=== PATIENT | female | born 1955 | race Caucasian/White ===

== ENCOUNTER 2024-02-15 08:42 | Outpatient (AMB) | payer MEDICARE, SELFPAY ==
--- NOTE | 2024-02-15 08:56 | A.OFFPC_ITS ---
Vital Signs 02/15/24 09:16 Height 5 ft 6 in Weight 165 lb 8 oz BMI 26.7 BP 138/80 Blood Pressure Location Lt brachial Position Sitting Respiration 16 Pulse 62 Pulse Source Pulse Oximeter Temp 98.2 F Temp Source Oral Pulse Oximetry (%) 98 Oxygen Delivery Method Room Air Intake Visit Reasons: est care Intake Note: New patient visit Ethnographer Required: No Allergies Penicillins Allergy (Unknown, Verified 02/15/24 09:41) Rash Sulfa (Sulfonamide Antibiotics) Allergy (Unknown, Verified 02/15/24 09:41) unknown nitrofurantoin [From Macrobid] Adverse Reaction (Unknown, Verified 02/15/24 09:41) cough prednisone Adverse Reaction (Verified 02/15/24 09:41) tachycardia Medication List - Last Reconciled 02/15/24 by Domitila Roberto PA-C cromolyn mg PO cromolyn (Nasalcrom) 1 spray intranasal TID famotidine 20 mg PO DAILY fexofenadine 180 mg PO DAILY latanoprost 0.005% drps ophthalmic (eye) levalbuterol tartrate 45 mcg/actuation inhalation levothyroxine 88 mcg PO DAILY metoprolol succinate ER (Toprol XL) 75 mg PO omeprazole 20 mg PO BID Tobacco use date assessed: 02/15/24 Fall risk assessment: No Falls in past year Last assessed Fall Risk: 02/15/24 Dental Screening Dental Screen Date: 02/15/24 Did you have a dental visit in the last 12 months?: Yes Did you have a dental problem in the last 6 months where you did not have access to dental care?: No Was dental information given to patient?: Patient has dentist HPI est care HPI Details Patient is a 68-year-old female with a significant past medical history of GERD, hypertension, hypothyroidism, prediabetes, vitamin-D deficiency, diverticulosis, allergic rhinitis, low serum IgA, palpitations, thyroid nodules [facility] is transferring from [facility]. I last saw her in September. CV: Blood pressure today in the office is. She is currently on metoprolol 75 mg daily. She does follow with cardiology for her history of palpitations and hypertension. Endo: She is on 88 mcg of levothyroxine. Her last TSH was 1.85. Had a thyroid ultrasound 07/10/23 which was WNL. No nodules. Last A1c was 5.7. She has been a prediabetic but has not crossed into diabetes. No polyuria or polydipsia. Tries to be careful with her diet. GI: Overall stable and following with GI at [facility] (was with Dr. Barragan) for her chronic, ongoing abdominal discomfort and GERD. Omeprazole and famotidine are helpful. Uses hydrocortisone suppositories prn. She is seeing GI next week. Allergy: Follows with Allergy and immunology in [place]. Had PFTs which were normal this past year. She did fail a penicillin challenge. She is following up with them for regards if possible long habetty WATERS. They thought that she may benefit from cromolyn but has not started this. She states she is stressed about how to take this. She is compliant with Sensimist, Danna and going to be switching nasal sprays due to increased eye pressure. 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 Ackerman for her increased urinary frequency but that had resolved when she started to pay attention to her diet and urination. She is going to start the estradiol cream soon. 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 Mammogram: Up-to-date per patient completed 10/14 does them at [place]. 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 GERD (gastroesophageal reflux disease) Diverticulosis Hemorrhoids Palpitations Thyroid nodule Seasonal allergies Allergic rhinitis Hypothyroidism (acquired) Prediabetes Hypertension Family History (Updated 02/15/24 @ 08:40 by Domitila Roberto PA-C) Mother Colon cancer Father Aneurysm, aortic Heart disease Paternal Grandfather Colon cancer Brother Depression Social History Housing: House Patient Tobacco Use Status: Former Tobacco user Years Smoked: socially, quit 1989 e-Cigarette/Vaping Use: Never Used Second Hand Smoke Exposure: No service: Yes Current occupational status: retired Cognitive needs: No Hearing needs: No Vision needs: Yes (Reading glasses ) Questionnaire PHQ-9 Over the last 2 weeks, how often have you been bothered by any of the following problems? 1. Little interest or pleasure in doing things: not at all 2. Feeling down, depressed, or hopeless: not at all 3. Trouble falling or staying asleep, or sleeping too much: not at all 4. Feeling tired or having little energy: not at all 5. Poor appetite or overeating: not at all 6. Feeling bad about yourself - or that you are a failure or have let yourself or your family down: not at all 7. Trouble concentrating on things, such as reading the newspaper or watching television: not at all 8. Moving or speaking so slowly that other people could have noticed. Or the opposite - being so fidgety or restless that you have been moving around a lot more than usual: not at all 9. Thoughts that you would be better off or of hurting yourself in some way: not at all Total score: 0 Depression Screening Interpretation: Negative Depression Screening Done: Yes 05601 - PHQ-9 Billing: Yes Source: Developed by Drs. Bebeto Conde, Marie Villalta, Randy Ramirez and colleagues, with an educational sneha from [employer]. Thrive Questionnaire Date Thrive assessed: 02/15/24 I am a: Patient What is your living situation today?: I have a steady place to live Within the past 12 months, did the food you bought not last and you didn't have the money to get more?: Never true Within the past 12 months, did you worry whether your food would run out before you got money to buy more?: Never true Do you have trouble paying for medicines?: No Do you have trouble getting transportation to medical appointments?: No Do you have trouble paying your heating and electricity bill?: No Do you have trouble taking care of your child, family member or friend?: No Do you have trouble with day-to-day activities such as bathing, preparing meals, shopping, managing finances, etc.?: No Are you currently unemployed and looking for a job?: No Are you interested in more education?: No Please select the resources that you would like help with: None Currently or been in a relationship where the following occur: no concerns reported THRIVE Score: 0 AUDIT C Alcohol Use Questionnaire (AUDIT-C) 1. How often do you have a drink containing alcohol?: Monthly or less 2. How many drinks containing alcohol do you have on a typical day when you are drinking?: 1 or 2 3. How often do you have six or more drinks on one occasion?: Never Total Score: 1 Score Reviewed/Action Taken: Yes MALLIKA-7 AMB Questionnaire MALLIKA-7 Date MALLIKA - 7 assessed: 02/15/24 Feeling nervous, anxious, or on edge: 0 = Not at all Not being able to stop or control worryin = Not at all Worrying too much about different things: 0 = Not at all Trouble relaxin = Not at all Being so restless that it is hard to sit still: 0 = Not at all Becoming easily annoyed or irritable: 0 = Not at all Feeling afraid as if something awful might happen: 0 = Not at all Total MALLIKA-7 score (0-4 normal; 5-9 mild; 10-14 moderate; 15-21 severe): 0 Source: Developed by Drs. Bebeto Conde, Marie Villalta, Randy Ramirez and colleagues, with an educational sneha from [employer]. MALLIKA-7 Assessment Billing MALLIKA-7 Assessment Tool: MALLIKA-7 Assessment 58327 Review of Systems Const Denies fatigue, Denies fever(s), Denies night sweats and Denies weight loss Eyes Denies blurry vision ENT Denies facial pain, Denies nasal congestion and Denies nasal discharge Card Denies chest pain, Denies lightheadedness, Denies palpitations and Denies dyspnea Resp Denies cough, Denies dyspnea and Denies wheezing GI Denies abdominal pain, Denies hematochezia, Denies constipation, Denies diarrhea, Denies nausea and Denies vomiting Endo Denies fatigue and Denies palpitations Aller/Immun Denies wheezing Physical exam (Primary Care) Tobacco/Smoking Status: Tobacco use Status Tobacco use date assessed 02/15/24 02/15/24 09:12 Patient Tobacco Use Status Former Tobacco user 02/15/24 09:12 e-Cigarette/Vaping Use Never Used 02/15/24 09:12 Depression Screening Interpretation: Negative Currently or been in a relationship where the following occur: no concerns reported Const Orientation/consciousness: patient oriented x3 HENMT Ears: hearing grossly normal bilaterally Neck Thyroid: Thyroid normal Lymphatic: no lymphadenopathy noted Resp Auscultation: clear to auscultation bilaterally Cardio Rate: regular rate Rhythm: regular rhythm Heart sounds: S1 normal heart sound present and S2 normal heart sound present GI Inspection: Yes normal to inspection Palpation (GI): Soft to palpation and Other GI palpation findings present (nontender, no cva tenderness) Auscultation: normoactive bowel sounds Rectal Exam - Female: deferred Skin General skin exam: no rashes or lesions noted Neuro General: patient oriented x3, gait normal and no focal motor deficits Assessment and Plan Assessment & Plan (1) Hypertension: Code(s): I10 - Essential (primary) hypertension Qualifiers: Hypertension type: primary hypertension Qualified Code(s): I10 - Essential (primary) hypertension Plan: continue metoprolol 75 mg daily. will need pa for future refill. does not tolerate other brands/dosing. (2) Prediabetes: Code(s): R73.03 - Prediabetes Plan: a1c ordered (3) Hypothyroidism (acquired): Code(s): E03.9 - Hypothyroidism, unspecified Plan: last tsh was wnl continue levothyroxine (4) GERD (gastroesophageal reflux disease): Code(s): K21.9 - Gastro-esophageal reflux disease without esophagitis Qualifiers: Esophagitis presence: without esophagitis Qualified Code(s): K21.9 - Gastro-esophageal reflux disease without esophagitis Plan: well controlled with omeprazole and famotidine. following with GI Plan advised to book cpe labs ordered bone density ordered as she is due this summer pt will follow up sooner prn pt understands and agrees with the plan Orders: Orders Complete Blood Count Auto Diff Today E03.9 - Hypothyroidism, unspecified, I10 - Essential (primary) hypertension, K21.9 - Gastro-esophageal reflux disease without esophagitis, R73.03 - Prediabetes Lipid Panel Today E03.9 - Hypothyroidism, unspecified, I10 - Essential (primary) hypertension, K21.9 - Gastro-esophageal reflux disease without esophagitis, R73.03 - Prediabetes Vitamin D 25-OH Total Today E03.9 - Hypothyroidism, unspecified, E55.9 - Vitamin D deficiency, unspecified, I10 - Essential (primary) hypertension, K21.9 - Gastro-esophageal reflux disease without esophagitis, R73.03 - Prediabetes Comprehensive [place]. Panel Fast Today E03.9 - Hypothyroidism, unspecified, I10 - Essential (primary) hypertension, K21.9 - Gastro-esophageal reflux disease wit hout esophagitis, R73.03 - Prediabetes Hemoglobin A1c Today E03.9 - Hypothyroidism, unspecified, I10 - Essential (primary) hypertension, K21.9 - Gastro-esophageal reflux disease without esophagitis, R73.03 - Prediabetes TSH reflex Free T4 Today E03.9 - Hypothyroidism, unspecified, I10 - Essential (primary) hypertension, K21.9 - Gastro-esophageal reflux disease without esophagitis, R73.03 - Prediabetes Vitamin B12 and Folate Today E03.9 - Hypothyroidism, unspecified, I10 - Essential (primary) hypertension, K21.9 - Gastro-esophageal reflux disease without esophagitis, R73.03 - Prediabetes XR DEXA axial skeleton Today E03.9 - Hypothyroidism, unspecified, I10 - Essential (primary) hypertension, K21.9 - Gastro-esophageal reflux disease without esophagitis, R73.03 - Prediabetes, Z78.0 - Asymptomatic menopausal state Coding Level of Care Code Est Pt Level 4 (21823) Complex EM visit Add On G2211 Diagnoses Primary hypertension I10 Hypertension type: primary hypertension Prediabetes R73.03 Hypothyroidism (acquired) E03.9 Gastroesophageal reflux disease without esophagitis K21.9 Esophagitis presence: without esophagitis Additional Codes MALLIKA-7 Assessment Billing - MALLIKA-7 Assessment Tool: MALLIKA-7 Assessment [id number] ([id number])
[2024-02-15 09:16] VITALS: BP 138/80; PULSE 62; RESP 16; TEMP 36.8; O2SAT 98; BMI 26.7
== END 2024-02-15 10:04 | disposition home or self-care (01) ==
PROVIDERS: Visit Provider Physician Assistant
DX: I10 Essential (primary) hypertension (principal); R73.03 Prediabetes; E03.9 Hypothyroidism, unspecified; K21.9 Gastro-esophageal reflux disease without esophagitis
CPT/HCPCS: 99214; G2211

== ENCOUNTER 2024-05-13 07:30 | Outpatient (REF) | payer MEDICARE, SELFPAY ==
[2024-05-13 11:10] LABS: MANUAL DIFF FLAG NO
[2024-05-13 11:19] LABS: Basophils Absolute Auto 0.1 X10*3/uL (0.0-0.2); Basophils Percent Auto 0.9 % (0-2); Eosinophils Absolute Auto 0.1 X10*3/uL (0.0-0.4); Eosinophils Percent Auto 1.7 % (0-4); Hematocrit 44.9 % (37.0-47.0); Imm Gran Abs Auto 0.01 X10*3/uL (0.00-0.03); Imm Gran Pct Auto 0.2 % (0.0-0.4); Lymphocytes Absolute Auto 2.3 X10*3/uL (1.2-4.9); Lymphocytes Percent Auto 35.7 % (20-40); Mean Corpuscular HGB Conc 33.4 g/dl (31.0-35.0); Mean Corpuscular Hemoglobin 31.6 pg (27.0-33.0); Mean Corpuscular Volume 94.5 fL (80.0-98.0); Mean Platelet Volume 11.4 fL (9.4-12.3); Monocytes Absolute Auto 0.6 X10*3/uL (0.1-1.2); Monocytes Percent Auto 8.6 % (2-11); Neutrophils Absolute Auto 3.4 x10*3/uL (2.0-8.3); Neutrophils Percent Auto 52.9 % (45-73); Platelet Count 241 X10*3/uL (160-400); Red Blood Count 4.75 X10*6/uL (4.20-5.50); Red Cell Distribution Width 11.8 % (11.0-16.0); White Blood Count 6.4 X10*3/uL (4.8-10.8)
[2024-05-13 11:30] LABS: Estimated Average Glucose 111 mg/dL; Hemoglobin A1c % 5.5 % (<6.0)
[2024-05-13 11:37] LABS: Alanine Aminotransferase 18 U/L (0-31); Albumin Level 4.3 g/dL (3.5-5.0); Alkaline Phosphatase 88 U/L (39-117); Anion Gap 12 (12-20); Aspartate Amino Transferase 23 U/L (5-31); Bilirubin Total 0.5 mg/dL (0.0-1.0); Blood Urea Nitrogen 16 mg/dL (9-16); Calcium 9.6 mg/dL (8.4-10.2); Carbon Dioxide 27 mmol/L (22-29); Chloride 104 mmol/L (96-108); Cholesterol 195 mg/dL (<200); Estimated Glomerular Filt Rate > 60; Glucose Fasting 106 mg/dL (60-99); HDL Cholesterol 55 mg/dL (>40); LDL Cholesterol Calculated 123 mg/dL (<100); Potassium 4.2 mmol/L (3.3-5.1); Sodium 139 mmol/L (135-145); Total Protein 6.6 g/dL (6.5-8.0); Triglycerides 89 mg/dL (<150)
[2024-05-13 11:55] LABS: TSH reflex Free T4 1.18 uIU/mL (0.32-4.0); Vitamin D 25-OH Total 88.9 ng/mL (>30)
[2024-05-13 12:52] LABS: Folate 9.3 ng/mL (> or = 4.0); Vitamin B12 382 pg/mL (200-900)
== END 2024-05-13 07:31 | disposition home or self-care (01) ==
LOC: HO.WFDLDS 07:30
PROVIDERS: Visit Provider Physician Assistant
DX: E03.9 Hypothyroidism, unspecified (principal); R73.03 Prediabetes; I10 Essential (primary) hypertension; K21.9 Gastro-esophageal reflux disease without esophagitis; E55.9 Vitamin D deficiency, unspecified
CPT/HCPCS: 36415; 80053; 80061; 82306; 82607; 82746; 83036; 84443; 85025

== ENCOUNTER 2024-05-15 07:43 | Outpatient (AMB) | payer MEDICARE, SELFPAY ==
--- NOTE | 2024-05-15 08:02 | MHC.PC.OV ---
Vital Signs 05/15/24 08:10 Height 5 ft 6 in Weight 161 lb 6 oz BMI 26.0 BP 138/84 Blood Pressure Location Rt brachial Position Sitting Pulse 67 Pulse Source Pulse Oximeter Pulse Oximetry (%) 97 Oxygen Delivery Method Room Air Intake Visit Reasons: CPE Intake Note: Physical. Needs refill on levothyroxine 88 mcg, Metoprolol 75 mg Allergies Penicillins Allergy (Unknown, Verified 05/15/24 08:07) Rash Sulfa (Sulfonamide Antibiotics) Allergy (Unknown, Verified 05/15/24 08:07) unknown nitrofurantoin [From Macrobid] Adverse Reaction (Unknown, Verified 05/15/24 08:07) cough prednisone Adverse Reaction (Verified 05/15/24 08:07) tachycardia Medication List - Last Reconciled 05/15/24 by Domitila Roberto PA-C cromolyn mg PO cromolyn (Nasalcrom) 1 spray intranasal TID famotidine 20 mg PO DAILY fexofenadine 180 mg PO DAILY latanoprost 0.005% drps ophthalmic (eye) levalbuterol tartrate 45 mcg/actuation inhalation levothyroxine 88 mcg PO DAILY metoprolol succinate ER (Toprol XL) 75 mg PO omeprazole 20 mg PO BID Tobacco use date assessed: 02/15/24 Dental Screening Dental Screen Date: 02/15/24 HPI CPE HPI Details Patient is a 68-year-old female with a significant past medical history of GERD, hypertension, hypothyroidism, prediabetes, vitamin-D deficiency, diverticulosis, allergic rhinitis, low serum IgA, palpitations, thyroid nodules presenting today for a cpe. CV: Blood pressure today in the office is 138/84. bps at home <120/70. She is currently on metoprolol 75 mg daily. She does follow with cardiology for her history of palpitations and hypertension. Endo: She is on 88 mcg of levothyroxine. Her last TSH was 1.85. Had a thyroid ultrasound 05/01/23 which was WNL. No nodules. Last A1c was 5.7. She has been a prediabetic but has not crossed into diabetes. No polyuria or polydipsia. Tries to be careful with her diet. GI: Overall stable and following with GI at [facility] (was with Dr. Barragan) for her chronic, ongoing abdominal discomfort and GERD. Omeprazole and famotidine are helpful. Uses hydrocortisone suppositories prn. She is seeing GI next week. Allergy: Follows with Allergy and immunology in [place]. Had PFTs which were normal this past year. She did fail a penicillin challenge. She is following up with them for regards if possible long haul COVID. They thought that she may benefit from cromolyn but still has not started this. She is compliant with Sensimist, Danna and going to be switching nasal sprays due to increased eye pressure. 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 Ackerman for her increased urinary frequency but that had resolved when she started to pay attention to her diet and urination. 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 Mammogram: Up-to-date per patient completed 10/14 does them at [place]. 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 GERD (gastroesophageal reflux disease) Diverticulosis Hemorrhoids Palpitations Thyroid nodule Seasonal allergies Allergic rhinitis Hypothyroidism (acquired) Prediabetes Hypertension Family History (Updated 02/15/24 @ 08:40 by Domitila Roberto PA-C) Mother Colon cancer Father Aneurysm, aortic Heart disease Paternal Grandfather Colon cancer Brother Depression Social History Housing: House Patient Tobacco Use Status: Former Tobacco user Years Smoked: socially, quit 1989 e-Cigarette/Vaping Use: Never Used Second Hand Smoke Exposure: No service: Yes Current occupational status: retired Cognitive needs: No Hearing needs: No Vision needs: Yes (Reading glasses ) Questionnaire Thrive Questionnaire Date Thrive assessed: 02/15/24 MALLIKA-7 AMB Questionnaire MALLIKA-7 Date MALLIKA - 7 assessed: 02/15/24 Source: Developed by Drs. Bebeto Conde, Marie Villalta, Randy Ramirez and colleagues, with an educational sneha from [employer]. Physical exam (Primary Care) Vital Signs: Last Vital Signs Pulse 67 05/15/24 08:10 BP 138/84 05/15/24 08:10 Pulse Ox 97 05/15/24 08:10 Oxygen Delivery Method Room Air 05/15/24 08:10 BMI result Body Mass Index 26.0 Tobacco/Smoking Status: Tobacco use Status Tobacco use date assessed 02/15/24 05/15/24 08:03 Patient Tobacco Use Status Former Tobacco user 05/15/24 08:03 e-Cigarette/Vaping Use Never Used 05/15/24 08:03 Thrive Assessment: Date of Thrive Assessment Date Thrive assessed 02/15/24 05/15/24 08:03 Const Orientation/consciousness: patient oriented x3 HENMT Ears: hearing grossly normal bilaterally and TM's normal bilaterally General nose exam: No nasal polyps present Face and sinus: Yes sinuses nontender Mouth: Normal oral and palatal mucosa present Eyes Pupils: Equal, round and reactive pupils present EOM: EOMs intact bilaterally Neck Neck: Yes full ROM and Yes no lymphadenopathy Thyroid: Thyroid normal Chest Chest palpation & inspection: normal inspection of the chest Resp Auscultation: clear to auscultation bilaterally Cardio Rate: regular rate Rhythm: regular rhythm Heart sounds: S1 normal heart sound present and S2 normal heart sound present Peripheral pulses: Peripheral pulses 2+ throughout GI Other: Soft, nontender Auscultation: normal bowel sounds Rectal Exam - Female: deferred General: Yes no CVA tenderness Back/Spine/Pelvis Other: Nontender Back: no CVA tenderness Skin General skin exam: no rashes or lesions noted Nails: yellow and thickened Neuro General: patient oriented x3, gait normal, CN's II-XI intact bilaterally and deep tendon reflexes 2+ bilaterally Cranial nerves: Yes Equal, round and reactive pupils present Motor exam (neuro): 5/5 motor strength present throughout Sensory Exam: double simultaneous stimulation for sensation normal Coordination: [id number] test normal and Romberg test negative Extrem General: Yes normal to inspection and Yes full ROM Psych Affect: normal affect Attitude: cooperative Thought process: Normal thought process present Thought content: Normal thought content present Insight: Good insight present (Psych) Judgement: Good judgement present (Psych) Results Reviewed Results Reviewed: Laboratory Tests 05/13/24 07:34 WBC 6.4 RBC 4.75 Hgb 15.0 Hct 44.9 Plt Count 241 Sodium 139 Potassium 4.2 Chloride 104 Carbon Dioxide 27 Anion Gap 12 BUN 16 Creatinine 0.85 Estimated GFR > 60 Fasting Glucose 106 H Hemoglobin A1c % 5.5 AST 23 ALT 18 Alkaline Phosphatase 88 Total Protein 6.6 Cholesterol 195 LDL Cholesterol, Calc 123 H HDL Cholesterol 55 Vitamin B12 382 25-OH Vitamin D Total 88.9 TSH 1.18 Assessment and Plan Assessment & Plan (1) Routine general medical examination at a health care facility: Code(s): Z00.00 - Encounter for general adult medical examination without abnormal findings Plan: reviewed bone density reordered, scheduled for end of May. (2) Hypothyroidism (acquired): Code(s): E03.9 - Hypothyroidism, unspecified Plan: tsh wnl. continue current treatment plan (3) Hypertension: Code(s): I10 - Essential (primary) hypertension Qualifiers: Hypertension type: primary hypertension Qualified Code(s): I10 - Essential (primary) hypertension Plan: at home readings wnl. continue current treatment plan. 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
[2024-05-15 08:10] VITALS: BP 138/84; PULSE 67; O2SAT 97; BMI 26.0
== END 2024-05-15 08:54 | disposition home or self-care (01) ==
PROVIDERS: PCP Physician Assistant; Visit Provider Physician Assistant
DX: E03.9 Hypothyroidism, unspecified (principal); I10 Essential (primary) hypertension; R76.8 Other specified abnormal immunological findings in serum
CPT/HCPCS: 99214

== ENCOUNTER 2024-11-20 08:04 | Outpatient (AMB) | payer MEDICARE, OTHER, SELFPAY ==
--- OUTSIDE RECORDS SUMMARY | 2024-11-20 08:16 | XMS_ITS ---
Author Organization [facility] Address [address] [place] [address] Care Team Providers Care Design Drafter Name Role Phone Domitila Roberto Primary Care Provider Skyler Berkowitz [phone] Encounters Encounter Location Date Provider Diagnosis [address] [address] 10/29/2024 Skyler Rollins Plan Of Treatment Next Appt Details Provider Name:Skyler Rollins, 01/09/2025 09:15:00 AM, [address] [place], [address], Progress Notes * Snehal CHOWDHURYB:1955 (69 yo F)Acc No.[id number]:10/29/2024 Progress Note Patient:?TRENTON Lashell Provider:?Skyler Rollins D.P.M. :1955???Age:69 Y???Sex:Female D ate:10/29/2024 Address:[address] [facility] [id number] Pcp:Domitila Roberto Subjective: * Chief Complaints: * ??? * Medical History:? Objective: * Vitals:? Assessment: Plan: * Treatment: * Images: * The named appointment provid er may or may not be the originator of this progress note, and it is not deemed complete until electronically signed by the appointment provider. Sign off status: Pending * Provider:?Skyler Rollins D.P.M. Date:?04/2025 Generated for Mily gerrado/Vikash/Wojciech on:?11/20/2024 08:16 AM EST
--- OUTSIDE RECORDS SUMMARY | 2024-11-20 08:16 | XMS_ITS | Patient Health Record ---
Author Organization [facility] Nina jovita [place] Address [address] [facility] [place] [address] Care Team Providers Care Nail Feeder Name Role Phone Domitila Roberto Primary Care Provider Skyler Berkowitz [phone] Allergies Allergen (clinical drug ingredient) Drug/Non Drug Allergy documented on EMR Reaction Allergy Type Onset Date Status sulfamethoxazole / trimethoprim Bactrim Unknown Drug Allergy Active nitrofurantoin, macrocrystals / nitrofurantoin, monohydrate Macrobid Unknown Drug Allergy Active Penicillin Unknown Drug Allergy Active Reason For Referral No Information Medications Medication SIG (Take, Route, Frequency, Duration) Notes Start Date End Date Status Levothyroxine Sodium Active Famotidine Active Omeprazole Active Fexofenadine HCl Act jennifer Toprol XL Active Latanoprost Active NasalCrom Active Colace Active Vitamin D Active Doxycycline Hyclate 100 MG 1 capsule Ora lly Twice a day for 10 days 08/13/2024 Active Levalbuterol HCl Act jennifer Social History Tobacco Use: Social History Observation Description Date Details (start date - stop date) Never Smoker NA - NA Tobacco use other than smoking: Question Answer Notes Are you an other tobacco user? No Tobacco Control (Standard) Question Answer Notes Tobacco use: Nonsmoker Additional Findings: Tobacco non-user Current no nsmoker AUDIT-C (Standard) Question Answer Notes Did you have a drink contain ing alcohol in the past year? Yes How often did you have six o r more drinks on one occasion in the past year? Never (0 point) How many drinks did you have on a typical day when you were drinking in the past year? 1 or 2 drinks (0 point) How often did you have a dri nk containing alcohol in the past year? Monthly or less (1 point) Points 1 Interpretation Negative Vital Signs Blood pressure diastolic 74 mm Hg 11/07/2024 Height 5ft 7in in 11/07/2024 Blood pressure systolic 126 mm Hg 11/07/2024 Weight 160 lbs 11/07/2024 BMI 25.06 kg/m2 11/07/2024 Procedures Procedure Date Ordered Date Performed Result Body Sit e 83490-FHOLLDJ NAIL, 6 OR MORE 08/13/2024 N/A 79388-NEVRIHO NAIL, 6 OR MORE 11/07/2024 N/A Encounters Encounter Location Date Provider Diagnosis [address] [address] 08/13/2024 Skyler Rollins Abscess of toe, righ t L02.611 ; Onychomycosis B35.1 ; Pain in right toe(s) M79.674 and Pain in left toe(s) M79.[address] [address] 11/07/2024 Skyler Rollins Onychomycosis B35.1 ; Pain in right toe(s) M79.674 and Pain in left toe(s) M79.[address] [address] [facility]27[facility]20[facility] [address] 07/30/2024 Skyler Rollins [address] [address] 09/30/2024 Skyler Rollins Assessments Encounter Date Diagnosis (ICD Code) Assessment Notes Treatment Notes Treatment Clinical Notes Section Notes 08/13/2024 Abscess of toe, right (ICD-10 - L02.611) Patient Educated with: WOUND CARE INSTRUCTIONS.p df (WOUND CARE INSTRUCTIONS.p df) 08/13/2024 Onychomycosis (ICD-10 - B35.1) 11/07/2024 Pain in right toe(s) (ICD-10 - M79.674) 11/07/2024 Onychomycosis (ICD-10 - B35.1) 11/07/2024 Pain in left toe(s) (ICD-10 - M79.675) 08/13/2024 Pain in right toe(s) (ICD-10 - M79.674) 08/13/2024 Pain in left toe(s) (ICD-10 - M79.675) 11/07/2024 Other Plan Of Treatment Pending Test Test Name Order Date [id number] NAIL, 6 OR MORE 08/13/2024 62183-GCWWODI NAIL, 6 OR MORE 11/07/2024 Next Appt Details Provider Name:Skyler Paula Ayo, 01/09/2025 09:15:00 AM, [address] [facility], [place], [address], Insurance Providers Payer Name Payer Address Payer Phone Subscriber Number Group Number Insured Name Patient Relationship to Insured Coverage Start Date Coverage End Date Medicare National Govt Sv[employer] [address] [place] [address] [id number] Lashell Gomez Self - patient is the insured [employer] Blue [employer] [address] [place] [address] [id number] Lashell Gmoez Self - patient is the insured for Life [address] [place] [address] [id number] Lashell Gomez Self - patient is the insured Medical (General) History Medical History History ICD Code Broken bones covid-19 Headaches/Migraines Hepatitis High Blood Pressure Reflux ( GERD) thyroid Measles Chicken pox Surgical History Surgery Date(Month/Year) 1994 Hallux rigidus repair 1999
--- OUTSIDE RECORDS SUMMARY | 2024-11-20 08:17 | XMS_ITS ---
Author Organization [facility] Address [address] [place] [address] Care Team Providers Care Lime Kiln Operator Name Role Phone Domitila Roberto Primary Care Provider Skyler Berkowitz [phone] REASON FOR VISIT RS 10/29/24 Encounters Encounter Location Date Provider Diagnosis [facility] [address] [place] [address] 09/30/2024 Skyler Rollins Plan Of Treatment Next Appt Details Provider Name:Skyler Rollins, 01/09/2025 09:15:00 AM, [address] [facility], [place], [address], Progress Notes * Snehla CHOWDHURYB:1955 (69 yo F)Acc No.[id number]:09/30/2024 Patient:?Lashell CHOWDHURY :1955???Age:69 Y???Sex:Female Address: [address] [facility] [place] [address] * true * Date:? Generated for Printi ng/Fajosephg/eTransmitting on:?11/20/2024 08:16 AM EST
--- OUTSIDE RECORDS SUMMARY | 2024-11-20 08:17 | XMS_ITS ---
Author Organization [facility] [place] Address [address] [place] [address] Care Team Providers Care Collector Of Internal Revenue Name Role Phone Domitila Roberto Primary Care Provider Skyler Berkowitz [phone] Allergies Allergen (clinical drug ingredient) Drug/Non Drug Allergy documented on EMR Reaction Allergy Type Onset Date Status sulfamethoxazole / trimethoprim Bactrim Unknown Drug Allergy Active nitrofurantoin, macrocrystals / nitrofurantoin, monohydrate Macrobid Unknown Drug Allergy Active Penicillin Unknown Drug Allergy Active REASON FOR VISIT last visit pcp 04/2024, Painful nail(s) aggravated by shoes causing difficulty standing/walking Medications Medication SIG (Take, Route, Frequency, Duration) Notes Start Date End Date Status Latanoprost Active NasalCrom Active Colace Active Doxycycline Hyclate 100 MG 1 capsule Ora lly Twice a day for 10 days 08/13/2024 Active Levalbuterol HCl Act jennifer Famotidine Active Omeprazole Active Fexofenadine HCl Act jennifer Toprol XL Active Vitamin D Active Levothyroxine Sodium Active Social History Tobacco Use: Social History Observation [...] point) Points 1 Interpretation Negative Vital Signs Height 5ft 7in in 11/07/2024 Weight 160 lbs 11/07/2024 BMI 25.06 kg/m2 11/07/2024 Blood pressure systolic 126 mm Hg 11/07/19 25 Blood pressure diastolic 74 mm Hg 025 Procedures Procedure Date Ordered Date Performed Result Body Sit e 79385-SFQSDHT NAIL, 6 OR MORE 11/07/2024 N/A Encounters Encounter Location Date Provider Diagnosis [facility] [address] [address] 11/07/2024 Skyler Rollins Onychomycosis B35.1 ; Pain in right toe(s) M79.674 and Pain in left toe(s) M79.675 Assessments Encounter Date Diagnosis (ICD Code) Assessment Notes Treatment Notes Treatment Clinical Notes Section Notes 11/07/2024 Onychomycosis (ICD-10 - B35.1) 11/07/2024 Pain in right toe(s) (ICD-10 - M79.674) 11/07/2024 Pain in left toe(s) (ICD-10 - M79.675) 11/07/2024 Other Plan Of Treatment Pending Test Test Name Order Date [id number] NAIL, 6 OR MORE 11/07/2024 Next Appt Details Follow Up: 2 Months, Reason: Provider Name:Skyler Rollins, 01/09/2025 09:15:00 AM, [address] [facility], [place], [address], Procedure Notes * Category Sub-Category Detail Notes Debride Nail 6-10 Nail debridement , Due to the clinical pathology outlined in the exam findings, performance of this nail treatment is medically necessary as its management by an unskilled/untrained nonprofessional would put this patients foot and overall health at risk. Therefore, debridement to affected nail(s), as described in exam TA, T1, T2, T3, T4, T5, T6, T7, T8, T9, was performed exclusively by the physician of record to reduce/remove overall nail length, girth, thickness, subungual debris, and necrotic tissue, by manual and/or electrical means through the use of a nail nipper and/or dremel-type cinnamon grinder, to a more viable healthy nail plate or bed tissue 6-10 nails in total. Silver nitrate was used for any petechial bleeding as necessary. Definitive antifungal treatment options, both pharmaceutical and surgical, have been reviewed and discussed with the patient. The patient solely prefers the use of intermittent/as needed professional debridement services for their nail condition and understands the need for additional periodic treatments to maintain effectiveness in symptomatic relief - 20613 Progress Notes * Christofer GOMEZHermilaB:1955 (69 yo F)Acc No.[id number]:11/07/2024 Progress Note Patient:?Lashell GOMEZ Provider:?Skyler Rollins D.P.M. :1955???Age:69 Y???Sex:Female D ate:11/07/2024 Address:[address] [place] [id number] Pcp:Domitila Roberto Subjective: * Chief Complaints: * ???Last visit pcp 4Pai nful nail(s) aggravated by shoes causing difficulty standing/walking * ROS:?General/Constitutional:?Nausea?denies.?Vomiting?denies.?Hunger Thirst?denies.?Loss appetite?denies.?Chills?denies.?Fatigue?denies.?Fever?denies.?Night Sweats?denies.?Unexplained weight loss?denies.?Unexplained weight gain?denies.?HEENTM:?Dentures?denies.?Dizziness?denies.?Glasses/contacts?admits.?Retinopathy?de nies.?Blurred/double vision?denies.?TMJ?denies.?Discharge/drainage?denies.?Implants?denies.?Sore throat?denies.?Dental implants?denies.?Hard of hearing ?denies.?Difficulty chewing/swallowing/speaking?denies.?Nose bleeds?denies.?Sore mouth?denies.?Respiratory:?On Oxygen?denies.?Pneumonia/pleurisy?denies.?Bronchitis?denies.?Emphysema?denies.?C oughing?denies.?Cough blood?denies.?Shortness of breath?denies.?Wheezing?denies.?Cardiovascular:?Pacemaker?denies.?MVP?denies.?WPW?denies.?CHF?denies.?Heart attack?denies.?Septal defect?denies.?Rapid beat?denies.?Chest pain ?denies.?Atrial Fib.?denies.?Murmur/Palpitations?admits.?Gastrointestinal:?Hemorrhoids?admits.?Stomach/Abdominal pain?denies.?Dark blood stool?denies.?Irritable bowel ?admits.?Constipation?denies.?Diarrhea?denies.?Hematology:?Swelling?denies.?Clots?denies.?Varicose Veins?denies.?Bruising?denies.?Bleeding problem?denies.?Genitourinary:?Blood urine?denies.?Frequent/Painfu/urination/bladder control?denies.?Kidney stones?denies.?Infection (UTI)?admits.?Nephropathy?denies.?sex trans dis (STD)?denies.?Prostate?denies.?Musculoskeletal:?Hammertoes?denies.?Bunions?admits.?Back Pain?denies.?Muscle Cramps/ Resting?denies.?Muscle cramps / walking?denies.?Generalized aches and pains?denies.?Weakness?denies.?Integ.:?Etienne?denies.?Scars?denies.?Corns/calluses?denies.?Ingrown nails?admits.?Painful nails?admits.?Open Sores?denies.?Rashes?denies.?Neurologic:?Difficulty sleeping?denies.?Brain disorder?denies.?Numbness?denies.?Balance trouble?denies.?Confusion?denies.?Fainting/blackouts?denies.?Tingling?denies.?Tr emors?denies.? * Medical History:? * Surgical History:? 1994Hallux rigidus repair 1999 * Hospitalization/Major Diagno stic Procedure:?Denies Past Hospitalization * Family History:?Mother: dece ased, diagnosed with Other malignant neoplasm of unspecified site.?Father: .?Paternal Grand Father: diagnosed with Other malignant neoplasm of unspecified site. Siblings: diagnosed with Unspecified heart disease.? * Social History:?Tobacco Use:?Tobacco use other than smoking?Are you an other tobacco user??No ?Tobacco Control (Standard)?Tobacco use:?Nonsmoker ?Additional Findings: Tobacco non-user?Current nonsmoker ???Drugs/Alcohol:?Drugs?Have you used drugs other than those for medical reasons in the past 12 months??No ???Miscellaneous:?Caffeine: yes. ?Children: no, 2. ?Exercise: no. ?Marital status: . 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 ???Drug/Alcohol:?AUDIT-C (Standard)?Did you have a drink containing alcohol in the past year??Yes ?How often did you have six or more drinks on one occasion in the past year??Never (0 point) ?How many drinks did you have on a typical day when you were drinking in the past year??1 or 2 drinks (0 point) ?How often did you have a drink containing alcohol in the past year??Monthly or less (1 point) ?Points?1 ?Interpretation?Negative * Medications:?TakingLevothyro xine Sodium Toprol XL Fexofenadine HCl Omeprazole Famotidine Vitamin D Colace NasalCrom Latanoprost Levalbuterol HCl Doxycycline Hyclate 100 MG Capsule 1 capsule Orally Twice a day Medication List reviewed and reconciled with the patientTaking Levothyroxine Sodium Taking Toprol XL Taking Fexofenadine HCl Taking Omeprazole Taking Famotidine Taking Vitamin D Taking Colace Taking NasalCrom Taking Latanoprost Taking Levalbuterol HCl Taking Doxycycline Hyclate 100 MG Capsule 1 capsule Orally Twice a day Medication List reviewed and reconciled with the patient * Allergies:?PenicillinBactrim Macrobidyes[Allergies Verified] Objective: * Vitals:?Ht: 5ft 7in, Wt:160, BMI:25.06, Shoe size: 8, BP:126/74mm Hg, Ht-cm: 170.18 cm, Wt-k.57 kg. * Examination: ???General Examination: ?GENERAL APPEARANCE:?Reveals a pleasant, alert, well-nourished, well- developed, well hydrated individual, who demonstrates proper attention to hygiene/body habitus, and is in no acute distress, Pt serves as own?historian for office visit today , Denies fever, chills, malaise, lymphadenopathy.?ORIENTED:?person, place, and time.?Neurological: ?SENSORY:?Neurological exam reveals intact sensorium, pain sensation normal, vibration sensation intact, pinprick sensation is normal in the lower extremities, Pt denies, anesthesia, burning, paresthesia, tingling, B/L.?DEEP TENDON REFLEXES:?Achilles, 2/4, B/L.?Vascular: ?DP PULSES (B):?3/4, B/L.?PT PULSES (B):?3/4, B/L.?CAPILLARY FILL TIME:?immediate, all digits, B/L.?TROPHIC CONDITION-TEXTURE/ELASTICITY/TURGOR/HAIR GROWTH (B):?normal, B/L.?TEMPERTURE GRADIENT (C):?warm to cool, proximal to distal, B/L.?PIGMENTATION:?normal, B/L.?EDEMA (C):?absent, B/L.?Dermatologic: ?SKIN FINDINGS:?Skin exam reveals normal texture, elasticity, and turgor. There are no masses. The interspaces are clear.?Orthopedic: ?MUSCLE STRENGTH:?5/5 all groups in a symmetrical fashion , B/L.?Nails: ?NAILS are:?, Elongated, overgrown, dystrophic, lytic, greater than 3mm thick, discolored and friable with crumbly malodorous subungual debris, with pain on palpation , TA, T1, T2, T3, T4, T5, T6, T7, T8, T9.? Assessment: * Assessment: 1.?Pain in right toe(s) - M7 9.674???2.?Onychomycosis - B35.1 (Primary)???3.?Pain in left toe(s) - M79.675??? Plan: * Treatment: * Procedures:?Debride Nail 6-10:?Nail debridement?, Due to the clinical pathology outlined in the exam findings, performance of this nail treatment is medically necessary as its management by an unskilled/untrained nonprofessional would put this patients foot and overall health at risk. Therefore, debridement to affected nail(s), as described in exam TA, T1, T2, T3, T4, T5, T6, T7, T8, T9, was performed exclusively by the physician of record to reduce/remove overall nail length, girth, thickness, subungual debris, and necrotic tissue, by manual and/or electrical means through the use of a nail nipper and/or dremel-type cinnamon grinder, to a more viable healthy nail plate or bed tissue 6-10 nails in total. Silver nitrate was used for any petechial bleeding as necessary. Definitive antifungal treatment options, both pharmaceutical and surgical, have been reviewed and discussed with the patient. The patient solely prefers the use of intermittent/as needed professional debridement services for their nail condition and understands the need for additional periodic treatments to maintain effectiveness in symptomatic relief - 28612.? * Procedure Codes:?24529 MERA BERTRAND NAIL, 6 OR MORE * Follow Up:?2 Months * Images: * Sign off status: Completed true * Provider:?Skyler Rollins D.P.M. Date:?10/23 Generated for Mily gerardo/Vikash/eTransmitting on:?11/20/2024 08:17 AM EST History and Physical Notes * Examination Category Sub-Category Detail Notes Category Not es Neurological SENSORY: Neurological exa m reveals intact sensorium, pain sensation normal, vibration sensation intact, pinprick sensation is normal in the lower extremities, Pt denies, anesthesia, burning, paresthesia, tingling, B/L DEEP TENDON REFLEXES: Achilles, 2/4, B/L Dermatologic SKIN FINDINGS: Skin exam reveal s normal texture, elasticity, and turgor. There are no masses. The interspaces are clear Orthopedic MUSCLE STRENGTH: 5/5 all groups in a symm etrical fashion , B/L General Examination GENERAL APPEARANCE: Reveals a pleasant, alert, well- nourished, well-developed, well hydrated individual, who demonstrates proper attention to hygiene/body habitus, and is in no acute distress, Pt serves as own historian for office visit today , Denies fever, chills, malaise, lymphadenopathy ORIENTED: person, place, and t patito Vascular DP PULSES (B): 3/4, B/L PT PULSES (B): 3/4, B/L CAPILLARY FILL TIME: immediate, all digi ts, B/L TEMPERTURE GRADIENT (C): warm to cool, p roximal to distal, B/L TROPHIC CONDITION-TEXTURE/ELASTICITY/TURGOR/HAIR GROWTH (B): normal, B/L EDEMA (C): absent, B/L PIGMENTATION: normal, B/L Nails NAILS are: , Elongated, ove rgrown, dystrophic, lytic, greater than 3mm thick, discolored and friable with crumbly malodorous subungual debris, with pain on palpation , TA, T1, T2, T3, T4, T5, T6, T7, T8, T9
--- OUTSIDE RECORDS SUMMARY | 2024-11-20 08:17 | XMS_ITS | Clinical Summary ---
Author Organization [facility] Address [address] [place] [address] Phone Care Team Providers Care Technical Consultant Name Role Phone Ana Olmstead MD Primary Care Provider [phone] Allergies Active Allergy Reactions Criticality Noted Date Comments Fluorescein-Proparacaine High 12/22/2005 eye problems Penicillins Rash 04/08/2021 Prednisone 02/20/2024 Other reaction(s): tachycardia Sulfa (Sulfonamide Antibiotics) High 12/22/2005 Mother was severely allergic to Sulfa, close to pregnacy with Lashell. Medications Medication Sig Dispensed Refills Start Date End Date Status cholecalciferol (VITAMIN D-3) 50 mcg (2,000 unit) tablet Take by mouth. Active fexofenadine (ENMANUEL) 180 mg tablet Take 1 tablet (180 mg total) by mouth. Active hydrocortisone (ANUSOL-HC) 25 mg suppository Insert 1 suppository (25 mg total) into the rectum. 02/20/2024 11/25/2024 Active latanoprost (XALATAN) 0.005 % ophthalmic solution 1 drop. Activ e levalbuterol (XOPENEX HFA) 45 mcg/actuation inhaler Inhale 1-2 puffs by mouth. Active levothyroxine (SYNTHROID, LEVOTHROID) 88 mcg tablet 01/13/2022 Active metoprolol succinate (Toprol XL) 25 mg 24 hr tablet Take 1 tablet (25 mg total) by mouth. Brand name only Toprol 05/11/2022 Active metoprolol succinate (TOPROL-XL) 50 mg 24 hr tablet 12/27/2021 Active metoprolol succinate (Toprol XL) 50 mg 24 hr tablet Take 1 tablet (50 mg total) by mouth 1 (one) time each day. Brand name only Toprol Active cromolyn (Nasalcrom) 5.2 mg/spray (4 %) nasal spray Administer 1 spray into each nostril 3 (three) times a day. Active docusate sodium (COLACE) 100 mg capsule Take 1 capsule (100 mg total) by mouth 1 (one) time each day. Active famotidine (PEPCID) 20 mg tablet Take 1 tablet (20 mg total) by mouth 1 (one) time each day. 90 each 3 09/10/2024 10/05/2025 Active omeprazole (PriLOSEC) [address] capsule Take 1 capsule (20 mg total) by mouth 2 (two) times a day. 180 each 3 09/10/2024 09/05/2025 Active Active Problems Problem Noted Date Diagnosed Date Diverticulosis of colon 04/14/2021 Overview (07/18/2024): CN 03/2021 Preglaucoma 09/09/2015 Seasonal allergies 07/19/2010 Temporomandibular joint disorders 09/08/2006 Overview (07/18/2024): IMO update Dermatophytosis of nail 09/08/2006 Essential hypertension, benign 03/30/2006 Overview (07/18/2024): WHITE COAT Other hemorrhoids 03/30/2006 Hypothyroidism 12/22/2005 Headache 12/22/2005 Other chronic sinusitis 12/22/2005 Encounters Date Type Department Care Team Description 09/10/2024 9:00 AM EST Office Visit Gastroenterology - [place] [facility] [address] [facility] [address] [place] [address] Estela Rodrigues PA Gastroesophageal reflux disease with esophagitis without hemorrhage (Primary Dx); Irritable bowel syndrome, unspecified type from Last 3 Months Immunizations Name Administration Dates Next Due H1N1 Inj Preservative Free 09/10/2009 Influenza Quadravalent, MDCK , 0.5ml, preservative free (Flucelvax) 6mo and older 11/12/2018 Influenza trivalent, with preservative (Fluzone; Afluria) 6mo and older 07/16/2020,09/06/2016,08/14/2014,2012,07/02/2012,07/14/2011,07/02/2010,0 07/17/2009,07/31/2008,07/26/2007, 005 Td Tetanus diptheria (Tdvax) 7yo and older 07/09/2002 Tdap Tetanus diptheria acell ular pertussis (Boostrix; Adacel) 7yo and older 10/31/2012 Surgical History Surgery Date Site/Laterality Comments OTHER SURGICAL HISTORY PROCEDURE: OR CURTG/CAUT ANAL FISSURE W/DILAT SPHNCTR SPX 1ST COLONOSCOPY 11/17/2005 PROCEDURE: HISTORICAL COLONOSCOPY; COMMENT: WNL OTHER SURGICAL HISTORY PROCEDURE: OR OPTX&/RDCTJ VRT FX&/DISLC PST 1 VRT SGM LM VAGINAL DELIVERY PROCEDURE: OR VAGINAL DELIVERY ONLY; COMMENT: x1 FOOT SURGERY PROCEDURE: OR UNLISTED PROCEDURE FOOT/TOES; COMMENT: RIGHT HALLUX RIGIDUS SECTION PROCEDURE: OR DELIVERY ONLY; COMMENT: x1 COLONOSCOPY 1998 PROCEDURE: HISTORICAL COLONOSCOPY; COMMENT: negative COLONOSCOPY 07/04/2011 PROCEDURE: HISTORICAL COLONOSCOPY; COMMENT: normal COLONOSCOPY 09/29/2016 PROCEDURE: HISTORICAL COLONOSCOPY; COMMENT: Normal, no polyps. COLONOSCOPY 04/08/2021 PROCEDURE: HISTORICAL COLONOSCOPY; COMMENT: Diverticulosis, no polyps. ESOPHAGOGASTRODUODENOSCOPY 09/28/2022 PROCEDURE: OR EGD TRANSORAL BIOPSY SINGLE/MULTIPLE; COMMENT: irregular Z line, biopsy with reactive changes only Medical History Medical History Date Comments Other chronic sinusitis DX:Other chronic sinusitis Unspecified hypothyroidism DX:Un specified hypothyroidism Headache(784.0) DX:Headache(784. 0) Unspecified hemorrhoids with other complication DX:Unspecified hemorrhoids w ith other complication Temporomandibular joint diso rders, unspecified 09/08/2006 DX:Temporomandibular joint disorders, unspecified Deviated septum DX:Deviated sept um Essential hypertension, benign D X:Essential hypertension, benign; COMMENT: WHITE COAT Diverticulosis of colon 04/14/2021 DX:Diver ticulosis of colon; COMMENT: CN 03/2021 Family History Medical History Relation Name Comments Other cancer Father bcc Other: v - fib - icd Father Colon cancer Mother Other: headache Mother Colon cancer Paternal Grandfather Alzheimer's disease Paternal Grandmother Breast cancer Neg Hx Cancer of Small Bowel Neg Hx Kidney cancer Neg Hx Ovarian cancer Neg Hx Pancreatic cancer Neg Hx Uterine cancer Neg Hx Relation Name Status Comments Brother 1 (Age 57) mental hea lth Brother 2 Alive Brother 3 Alive Father Alive VFIB-ICD,TG, BA MOLLY CELL Maternal Grandfather Maternal Grandmother (Age 92) Mother (Age 56) COLON CA Paternal Grandfather (Age 80'S) COLON CA Paternal Grandmother (Age 90) AL TONY'S Son 1 Alive Son 2 Alive Social History Tobacco Use Types Packs/Day Years Used Date Smoking Tobacco: Former Cigarettes Q uit: 10/23/1989 Smokeless Tobacco: Never Alcohol Use Standard Drinks/Week Comments Not Currently 0.8 (1 standard drink = 0.6 oz p ure alcohol) Sex and Gender Information Value Date Recorded Sex Assigned at Not on file Gender Identity Not on file Sexual Orientation Not on file Job Start Date Occupation Industry Not on file Not on file Not on file Obstetrics History Last Filed Vital Signs Vital Sign Reading Time Taken Comments Blood Pressure 112/72 09/10/2024 9:01 AM EST Pulse 73 09/10/2024 9:01 AM EST Temperature - - Respiratory Rate - - Oxygen Saturation 97% 09/10/2024 9:01 AM EST Inhaled Oxygen Concentration - - Weight 74.8 kg (165 lb) 09/10/2024 9:01 AM EST Height 167.6 cm (5' 6 ) 09/10/2024 9:01 AM EST Body Mass Index 26.63 09/10/2024 9:01 AM EST Plan of Treatment Upcoming Encounters Date Type Department Care Team (Late st Contact Info) Description 12/18/2024 9:00 AM EST Office Visit Gastroenterology - [place] [address] [facility] [address] [place] [address] Estela Rodrigues PA [address] [facility] [address] [place] [address] Health Maintenance Due Date Last Done Comments Zoster Vaccines (1 of 2) 2007 Depression Screening 10/01/2022 Falls Risk Assessment 10/01/2022 Hypertension/CHF/CAD Annual BMP Blood Test 10/01/2022 03/08/2021 Medicare Annual Wellness Visit 10/01/2022 Osteoporosis Screening (Bone Density Screening) 10/01/2022 Social Influencers of Health Screening 10/01/2022 Pneumococcal Vaccine: 65+ Years (2 of 2 - PCV) 01/13/2024 01/12/2023 Breast Cancer Screening 09/27/2025 09/27/2023 Cholesterol Screening (Lipid Panel) 03/08/2026 03/08/2021, 03/08/2021 Colorectal Cancer Screening: Colonoscopy 04/08/2026 04/08/2021 RSV Immunization Patients 60+ Years Old (1 - 1-dose 75+ series) 2032 DTaP,Tdap,and Td Vaccines (4 - Td or Tdap) 01/26/2033 01/26/2023, 10/31/2012, 07/09/2002 Hepatitis C Screening Completed 01/21/2015 COVID-19 Vaccine Completed 07/18/2024, 11/2022, 10/25/2022, Additional history exists Influenza Vaccine Completed 10/08/2024, , 09/30/2022, Additional history exists HIB Vaccines Aged Out No longer eligi ble based on patient's age to complete this topic HPV Vaccines Aged Out No longer eligi ble based on patient's age to complete this topic Hepatitis A Vaccines Aged Out No long er eligible based on patient's age to complete this topic Hepatitis B Vaccines Aged Out No long er eligible based on patient's age to complete this topic IPV Vaccines Aged Out No longer eligi ble based on patient's age to complete this topic MMR Vaccines Aged Out No longer eligi ble based on patient's age to complete this topic Meningococcal ACWY Vaccine Aged Out N o longer eligible based on patient's age to complete this topic RSV Immunization Patients Under 20 months Aged Out No longer eligible based on patient's age to complete this topic Varicella Vaccines Aged Out No longer eligible based on patient's age to complete this topic Procedures Procedure Name Priority Date/Time Associated Diagnosis Comments COLONOSCOPY Routine 04/08/2021 ANNUAL BMP BLOOD TEST Routine 03/08/2021 LIPID PANEL Routine 03/08/2021 HEPATITIS C SCREENING Routine 01/21/2015 from Last 3 Months or Most Recently Relevant to Health Maintenance Results * Colonoscopy (04/08/2021) [facility] Colonoscopy No interpretation , abstracted Anatomical Region Laterality Modality Other Historical Provider MD CLEMENTE TREVIZO E * Annual BMP Blood Test (03/08/2021) [facility] Annual BMP Blood Test Abstracted Historical Provider MD CLEMENTE TREVIZO E * Lipid panel (03/08/2021) [facility] LDL/HDL Ratio 2 0 - 4 Triglycerides 57 0 - 150 mg/dL Cholesterol 192 0 - 200 mg/dL HDL 83 40 mg/dL LDL Cholesterol 98 0 - 100 mg/dL Blood Venous blood specimen / Unknown Historical Provider LAB BLOOD ORDERAB LES * Hepatitis C Screening (01/21/2015) [facility] Hepatitis C Screening Abstracted Historical Provider MD CLEMENTE Yanez from Last 3 Months or Most Recently Relevant to Health Maintenance Care Teams Technical Consultant Relationship Specialty Start Date End Date Ana Olmstead MD PCP - General Internal Medicine 09/10/24
--- NOTE | 2024-11-20 08:25 | MHC.PC.OV ---
Vital Signs 11/20/24 08:38 Height 5 ft 6 in BP 124/82 Blood Pressure Location Lt brachial Position Sitting Respiration 14 Pulse 63 Pulse Source Pulse Oximeter Pulse Oximetry (%) 98 Oxygen Delivery Method Room Air Intake Visit Reasons: htn, hypothyroid Intake Note: Follow up Tanning Consultant Required: No Allergies Penicillins Allergy (Unknown, Verified 11/20/24 08:29) Rash Sulfa (Sulfonamide Antibiotics) Allergy (Unknown, Verified 11/20/24 08:29) unknown nitrofurantoin [From Macrobid] Adverse Reaction (Unknown, Verified 11/20/24 08:29) cough prednisone Adverse Reaction (Verified 11/20/24 08:29) tachycardia Medication List - Last Reconciled 11/20/24 by Domitila Roberto PA-C cromolyn (Nasalcrom) 1 spray intranasal TID famotidine 20 mg PO DAILY fexofenadine 180 mg PO DAILY latanoprost 0.005% drps ophthalmic (eye) levalbuterol tartrate 45 mcg/actuation inhalation levothyroxine 88 mcg PO DAILY omeprazole 20 mg PO BID Toprol XL (metoprolol succinate) 75 mg (1.5 x 50 mg) PO DAILY 90 days NS Tobacco use date assessed: 02/15/24 Dental Screening Dental Screen Date: 02/15/24 HPI htn, hypothyroid HPI Details Patient is a 69-year-old female with a significant past medical history of GERD, hypertension, hypothyroidism, prediabetes, vitamin-D deficiency, diverticulosis, allergic rhinitis, low serum IgA, palpitations, thyroid nodules presenting today for a follow up. CV: Blood pressure today in the office is 124/82. bps at home <120/70. She is currently on metoprolol 75 mg daily. She does follow with cardiology for her history of palpitations and hypertension. Endo: She is on 88 mcg of levothyroxine. Her last TSH was 1.85. Had a thyroid ultrasound 05/01/23 which was WNL. No nodules. Last A1c was 5.7. She has been a prediabetic but has not crossed into diabetes. No polyuria or polydipsia. Tries to be careful with her diet. GI: Overall stable and following with GI at [facility] (was with Dr. Barragan) for her chronic, ongoing abdominal discomfort and GERD. Omeprazole and famotidine are helpful. Uses hydrocortisone suppositories prn. UTD with following with GI, no changes in meds. Allergy: Follows with Allergy and immunology in [place]. Sees them again 11/29/24. Had PFTs which were normal this past year. She did fail a penicillin challenge. She is following up with them for regards if possible long haul COVID. They thought that she may benefit from cromolyn but still has not started this. She is compliant with Sensimist, Danna and going to be switching nasal sprays due to increased eye pressure. Podiatry: follows regulary for onychomycosis and was on doxycycline in July for infection of foot but resolved. 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 She will now follow with Dr. Pena as Dr. Ackerman left. Dental: In April she had root canal work and needed antibiotics for that. Bus Steward: Follows regularly with gynecology. 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 GERD (gastroesophageal reflux disease) Diverticulosis Hemorrhoids Palpitations Thyroid nodule Seasonal allergies Allergic rhinitis Hypothyroidism (acquired) Prediabetes Hypertension Family History Mother Colon cancer Father Aneurysm, aortic Heart disease Paternal Grandfather Colon cancer Brother Depression Social History (Updated 11/20/24 @ 08:40 by Prachi Dyer CMA) Housing: House Alcohol intake: current Patient Tobacco Use Status: Former Tobacco user Years Smoked: socially, quit 1989 e-Cigarette/Vaping Use: Never Used Second Hand Smoke Exposure: No service: Yes Current occupational status: retired Cognitive needs: No Hearing needs: No Vision needs: Yes (Reading glasses ) Questionnaire Thrive Questionnaire Date Thrive assessed: 11/13/24 I am a: Patient What is your living situation today?: I have a steady place to live Within the past 12 months, did the food you bought not last and you didn't have the money to get more?: Never true Within the past 12 months, did you worry whether your food would run out before you got money to buy more?: Never true Do you have trouble paying for medicines?: No Do you have trouble getting transportation to medical appointments?: No Do you have trouble paying your heating and electricity bill?: No Do you have trouble taking care of your child, family member or friend?: No Do you have trouble with day-to-day activities such as bathing, preparing meals, shopping, managing finances, etc.?: No Are you currently unemployed and looking for a job?: No Are you interested in more education?: No Please select the resources that you would like help with: None Currently or been in a relationship where the following occur: No concerns reported THRIVE Score: 0 AUDIT C Alcohol Use Questionnaire (AUDIT-C) 1. How often do you have a drink containing alcohol?: Monthly or less 2. How many drinks containing alcohol do you have on a typical day when you are drinking?: 1 or 2 3. How often do you have six or more drinks on one occasion?: Never Total Score: 1 MALLIKA-7 AMB Questionnaire MALLIKA-7 Date MALLIKA - 7 assessed: 11/20/24 Feeling nervous, anxious, or on edge: 0 = Not at all Not being able to stop or control worryin = Not at all Worrying too much about different things: 0 = Not at all Trouble relaxin = Not at all Being so restless that it is hard to sit still: 0 = Not at all Becoming easily annoyed or irritable: 0 = Not at all Feeling afraid as if something awful might happen: 0 = Not at all Total MALLIKA-7 score (0-4 normal; 5-9 mild; 10-14 moderate; 15-21 severe): 0 Source: Developed by Drs. Bebeto Conde, Marie Villalta, Randy Ramirez and colleagues, with an educational sneha from [employer]. MALLIKA-7 Assessment Billing MALLIKA-7 Assessment Tool: MALLIKA-7 Assessment 77775 Physical exam (Primary Care) Vital Signs: Last Vital Signs Pulse 63 11/20/24 08:38 Resp 14 11/20/24 08:38 BP 124/82 11/20/24 08:38 Pulse Ox 98 11/20/24 08:38 Oxygen Delivery Method Room Air 11/20/24 08:38 Tobacco/Smoking Status: Tobacco use Status Tobacco use date assessed 02/15/24 11/20/24 08:26 Patient Tobacco Use Status Former Tobacco user 11/20/24 08:40 e-Cigarette/Vaping Use Never Used 11/20/24 08:40 Thrive Assessment: Date of Thrive Assessment Date Thrive assessed 11/13/24 11/20/24 08:26 Currently or been in a relationship where the following occur: No concerns reported Const Orientation/consciousness: patient oriented x3 HENMT Ears: hearing grossly normal bilaterally, TM normal on the left and TM abnormal (Small air-fluid level noted on the right.) Neck Thyroid: Thyroid normal Lymphatic: no lymphadenopathy noted Resp Auscultation: clear to auscultation bilaterally Cardio Rate: regular rate Rhythm: regular rhythm Heart sounds: S1 normal heart sound present and S2 normal heart sound present GI Inspection: Yes normal to inspection Palpation (GI): Soft to palpation and Other GI palpation findings present (nontender, no cva tenderness) Auscultation: normoactive bowel sounds Rectal Exam - Female: deferred Skin General skin exam: no rashes or lesions noted Neuro General: patient oriented x3, gait normal and no focal motor deficits Coding Level of Care Code Est Pt Level 4 (97609) Complex EM visit Add On G2211 Diagnoses Primary hypertension I10 Hypertension type: primary hypertension Prediabetes R73.03 Hypothyroidism (acquired) E03.9 Allergic rhinitis J30.9 Gastroesophageal reflux disease without esophagitis K21.9 Esophagitis presence: without esophagitis Additional Codes MALLIKA-7 Assessment Billing - MALLIKA-7 Assessment Tool: MALLIKA-7 Assessment 82803 ([id number]) Assessment & Plan Assessment & Plan (1) Hypertension: Code(s): I10 - Essential (primary) hypertension Category: Medical Qualifiers: Hypertension type: primary hypertension Qualified Code(s): I10 - Essential (primary) hypertension Plan: BP WNL. Continue current regimen. We will need a prior authorization on her Toprol. She tolerates brand name. (2) Prediabetes: Code(s): R73.03 - Prediabetes Category: Medical Plan: A1c ordered. We will monitor (3) Hypothyroidism (acquired): Code(s): E03.9 - Hypothyroidism, unspecified Category: Medical Plan: Continue current levothyroxine dosage. We will check TSH. (4) Allergic rhinitis: Code(s): J30.9 - Allergic rhinitis, unspecified Category: Medical Plan: Following closely with Allergy and immunology. (5) GERD (gastroesophageal reflux disease): Code(s): K21.9 - Gastro-esophageal reflux disease without esophagitis Category: Medical Qualifiers: Esophagitis presence: without esophagitis Qualified Code(s): K21.9 - Gastro-esophageal reflux disease without esophagitis Plan: Stable. Up-to-date with GI. Orders: Orders TSH reflex Free T4 Today E03.9 - Hypothyroidism, unspecified, I10 - Essential (primary) hypertension, J30.9 - Allergic rhinitis, unspecified, K21.9 - Gastro-esophageal reflux disease without esophagitis, R73.03 - Prediabetes Hemoglobin A1c Today E03.9 - Hypothyroidism, unspecified, I10 - Essential (primary) hypertension, J30.9 - Allergic rhinitis, unspecified, K21.9 - Gastro-esophageal reflux disease without esophagitis, R73.01 - Impaired fasting glucose, R73.03 - Prediabetes Complete Blood Count Auto Diff Today E03.9 - Hypothyroidism, unspecified, I10 - Essential (primary) hypertension, J30.9 - Allergic rhinitis, unspecified, K21.9 - Gastro-esophageal reflux disease without esophagitis, R73.03 - Prediabetes Comprehensive [place]. Panel Fast Today E03.9 - Hypothyroidism, unspecified, I10 - Essential (primary) hypertension, J30.9 - Allergic rhinitis, unspecified, K21.9 - Gastro-esophageal reflux disease without esophagitis, R73.03 - Prediabetes Lipid Panel Today E03.9 - Hypothyroidism, unspecified, I10 - Essential (primary) hypertension, J30.9 - Allergic rhinitis, unspecified, K21.9 - Gastro-esophageal reflux disease without esophagitis, R73.03 - Prediabetes
[2024-11-20 08:38] VITALS: BP 124/82; PULSE 63; RESP 14; O2SAT 98
== END 2024-11-20 09:17 | disposition home or self-care (01) ==
PROVIDERS: PCP Physician Assistant; Visit Provider Physician Assistant
DX: I10 Essential (primary) hypertension (principal); R73.03 Prediabetes; E03.9 Hypothyroidism, unspecified; J30.9 Allergic rhinitis, unspecified; K21.9 Gastro-esophageal reflux disease without esophagitis

== ENCOUNTER → 2024-11-20 08:04 | Outpatient (BNVA) | payer MEDICARE, SELFPAY | PROVIDERS: PCP Physician Assistant; Visit Provider Physician Assistant | DX: I10 Essential (primary) hypertension (principal); R73.03 Prediabetes; E03.9 Hypothyroidism, unspecified; J30.9 Allergic rhinitis, unspecified; K21.9 Gastro-esophageal reflux disease without esophagitis | CPT/HCPCS: 96127; 99212 ==

== ENCOUNTER 2025-03-27 13:29 | Outpatient (AMB) | payer MEDICARE, SELFPAY ==
--- NOTE | 2025-03-27 13:38 | MHC.PC.OV ---
Vital Signs 03/27/25 13:47 Height 5 ft 6 in Weight 162 lb 6 oz BMI 26.2 BP 126/84 Blood Pressure Location Lt brachial Position Sitting Respiration 12 Pulse 71 Pulse Source Pulse Oximeter Temp 98.1 F Temp Source Oral Pulse Oximetry (%) 96 Oxygen Delivery Method Room Air Intake Visit Reasons: sinus issues Intake Note: Last Monday lost voice. Top tooth pain on right, right ear feels blocked, right side nasal congestion, coughed green mucous. Allergies are worse this time of year. Creping Machine Operator Helper Required: No Allergies Penicillins Allergy (Unknown, Verified 03/27/25 13:42) Rash Sulfa (Sulfonamide Antibiotics) Allergy (Unknown, Verified 03/27/25 13:42) unknown nitrofurantoin [From Macrobid] Adverse Reaction (Unknown, Verified 03/27/25 13:42) cough prednisone Adverse Reaction (Verified 03/27/25 13:42) tachycardia Medication List - Last Reconciled 03/27/25 by Domitila Roberto PA-C cromolyn (Nasalcrom) 1 spray intranasal TID fexofenadine 180 mg PO DAILY hydrocortisone acetate 25 mg NE BEDTIME latanoprost 0.005% drps ophthalmic (eye) levothyroxine 88 mcg PO DAILY omeprazole 20 mg PO BID Toprol XL (metoprolol succinate) 75 mg (1.5 x 50 mg) PO DAILY 90 days NS Tobacco use date assessed: 03/27/25 Fall risk assessment: No Falls in past year Last assessed Fall Risk: 03/27/25 Dental Screening Dental Screen Date: 03/27/25 Did you have a dental visit in the last 12 months?: Yes Did you have a dental problem in the last 6 months where you did not have access to dental care?: No Was dental information given to patient?: Patient has dentist HPI sinus issues HPI Details Patient is a 69-year-old female with a significant past medical history of GERD, hypertension, hypothyroidism, prediabetes, vitamin-D deficiency, diverticulosis, allergic rhinitis, low serum IgA, palpitations, thyroid nodules presenting today for an acute problem visit regarding her sinuses. CV: Blood pressure today in the office is 126/84. She is currently on metoprolol 75 mg daily. She does follow with cardiology for her history of palpitations and hypertension. Scheduled for echo in April. HEENT: Reports one-week a sinus pain and pressure. Feels it in her teeth. Has been getting greenish discharge. No fevers or chills. Endo: She is on 88 mcg of levothyroxine. Her last TSH was 1.85. Had a thyroid ultrasound 05/01/23 which was WNL. No nodules. Last A1c was 5.7. She has been a prediabetic but has not crossed into diabetes. No polyuria or polydipsia. Tries to be careful with her diet. Allergy: Follows with Allergy and immunology in [place]. Had PFTs which were normal this past year. She did fail a penicillin challenge. . Uro/back up worker: She will now follow with Dr. Pena as Dr. Ackerman left. 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 GERD (gastroesophageal reflux disease) Diverticulosis Hemorrhoids Palpitations Thyroid nodule Seasonal allergies Allergic rhinitis Hypothyroidism (acquired) Prediabetes Hypertension Family History Mother Colon cancer Father Aneurysm, aortic Heart disease Paternal Grandfather Colon cancer Brother Depression Social History (Updated 11/20/24 @ 08:40 by Parchi Dyer CMA) Housing: House Alcohol intake: current Patient Tobacco Use Status: Former Tobacco user Years Smoked: socially, quit 1989 e-Cigarette/Vaping Use: Never Used Second Hand Smoke Exposure: No service: Yes Current occupational status: retired Cognitive needs: No Hearing needs: No Vision needs: Yes (Reading glasses ) Questionnaire PHQ-9 Over the last 2 weeks, how often have you been bothered by any of the following problems? 1. Little interest or pleasure in doing things: not at all 2. Feeling down, depressed, or hopeless: not at all 3. Trouble falling or staying asleep, or sleeping too much: not at all 4. Feeling tired or having little energy: not at all 5. Poor appetite or overeating: not at all 6. Feeling bad about yourself - or that you are a failure or have let yourself or your family down: not at all 7. Trouble concentrating on things, such as reading the newspaper or watching television: not at all 8. Moving or speaking so slowly that other people could have noticed. Or the opposite - being so fidgety or restless that you have been moving around a lot more than usual: not at all 9. Thoughts that you would be better off or of hurting yourself in some way: not at all Total score: 0 Source: Developed by Drs. Bebeto Conde, Randy Wilder and colleagues, with an educational sneha from [employer]. Thrive Questionnaire Date Thrive assessed: 11/13/24 I am a: Patient What is your living situation today?: I have a steady place to live Within the past 12 months, did the food you bought not last and you didn't have the money to get more?: Never true Within the past 12 months, did you worry whether your food would run out before you got money to buy more?: Never true Do you have trouble paying for medicines?: No Do you have trouble getting transportation to medical appointments?: No Do you have trouble paying your heating and electricity bill?: No Do you have trouble taking care of your child, family member or friend?: No Do you have trouble with day-to-day activities such as bathing, preparing meals, shopping, managing finances, etc.?: No Are you currently unemployed and looking for a job?: No Are you interested in more education?: No Please select the resources that you would like help with: None Currently or been in a relationship where the following occur: No concerns reported THRIVE Score: 0 MALLIKA-7 AMB Questionnaire MALLIKA-7 Date MALLIKA - 7 assessed: 11/20/24 Source: Developed by Drs. Bebeto Conde, Marie Villalta, Randy Ramirez and colleagues, with an educational sneha from [employer]. Physical exam (Primary Care) Vital Signs: Last Vital Signs Temp 98.1 F 03/27/25 13:47 Pulse 71 03/27/25 13:47 Resp 12 03/27/25 13:47 BP 126/84 03/27/25 13:47 Pulse Ox 96 03/27/25 13:47 Oxygen Delivery Method Room Air 03/27/25 13:47 BMI result Body Mass Index 26.2 Tobacco/Smoking Status: Tobacco use Status Tobacco use date assessed 03/27/25 03/27/25 13:50 Patient Tobacco Use Status Former Tobacco user 03/27/25 13:50 e-Cigarette/Vaping Use Never Used 03/27/25 13:50 PHQ-9: PHQ-9 Score PHQ-9: Total score 0 03/27/25 14:05 Thrive Assessment: Date of Thrive Assessment Date Thrive assessed 11/13/24 03/27/25 13:50 Currently or been in a relationship where the following occur: No concerns reported Const Orientation/consciousness: patient oriented x3 HENMT Other: Small air-fluid level noted on the right TM. TM on left WNL. Nasal mucosa erythematous. There is maxillary sinus tenderness present. Ears: hearing grossly normal bilaterally Neck Thyroid: Thyroid normal Lymphatic: no lymphadenopathy noted Resp Auscultation: clear to auscultation bilaterally Cardio Rate: regular rate Rhythm: regular rhythm Heart sounds: S1 normal heart sound present and S2 normal heart sound present GI Inspection: Yes normal to inspection Palpation (GI): Soft to palpation and Other GI palpation findings present (nontender, no cva tenderness) Auscultation: normoactive bowel sounds Rectal Exam - Female: deferred Skin General skin exam: no rashes or lesions noted Neuro General: patient oriented x3, gait normal and no focal motor deficits Results Reviewed Results Reviewed: Laboratory Tests 05/13/24 07:34 WBC 6.4 RBC 4.75 Hgb 15.0 Hct 44.9 Plt Count 241 Sodium 139 Potassium 4.2 Chloride 104 Carbon Dioxide 27 Anion Gap 12 BUN 16 Creatinine 0.85 Estimated GFR > 60 Hemoglobin A1c % 5.5 Triglycerides 89 Cholesterol 195 LDL Cholesterol, Calc 123 H HDL Cholesterol 55 TSH 1.18 Coding Level of Care Code Est Pt Level 4 (72205) Complex EM visit Add On G2211 Diagnoses Prediabetes R73.03 Primary hypertension I10 Hypertension type: primary hypertension Bacterial sinusitis J32.9; B96.89 Assessment & Plan Assessment & Plan (1) Prediabetes: Code(s): R73.03 - Prediabetes Category: Medical Plan: Labs ordered. We will monitor (2) Hypertension: Code(s): I10 - Essential (primary) hypertension Category: Medical Qualifiers: Hypertension type: primary hypertension Qualified Code(s): I10 - Essential (primary) hypertension Plan: WNL. Continue current regimen (3) Bacterial sinusitis: Code(s): J32.9 - Chronic sinusitis, unspecified; B96.89 - Other specified bacterial agents as the cause of diseases classified elsewhere Plan: Doxycycline ordered to use. Discussed risks and benefits and adverse effects of the medication. Medications: New doxycycline hyclate 100 mg PO BID 20 tabs 0RF doxycycline hyclate 100 mg PO BID 20 tabs 0RF
[2025-03-27 13:47] VITALS: BP 126/84; PULSE 71; RESP 12; TEMP 36.7; O2SAT 96; BMI 26.2
--- OUTSIDE RECORDS SUMMARY | 2025-03-27 15:55 | XMS_ITS ---
Author Organization [facility] [place] Address [address] [facility] [place] [address] Care Team Providers Care Meters Superintendent Name Role Phone Domitila Roberto Primary Care Provider Skyler Berkowitz Unavailable [phone] Lucille Vitale [phone] Encounters Encounter Location Date Provider Diagnosis [address] [phone] 03/14/2025 Lucille Vitale Plan Of Treatment Next Appt Details Provider Name:Lucille Franco ker, 06/13/2025 09:00:00 AM, [address] [place] [address], [id number], Progress Notes * Snehal CHOWDHURYB:1955 (69 yo F)Acc No.[id number]:03/14/2025 Progress Note Patient:?Lashell CHOWDHURY Provider:?Lucille Vitale DPM :1955???Age:69 Y???Sex:Female D ate:03/14/2025 Address:[address] [place] [address] [facility] [id number] Pcp:Domitila Roberto Subjective: * Chief Complaints: * ??? * Medical History:? Objective: * Vitals:? Assessment: Plan: * Treatment: * Images: * The named appointment provid er may or may not be the originator of this progress note, and it is not deemed complete until electronically signed by the appointment provider. Sign off status: Pending * Provider:?Lucille Vitale DPM Date:?0 03/14/2025 Generated for Mily gerardo/Vikash/Wojciech on:?03/27/2025 03:55 PM EDT
== END 2025-03-27 16:34 | disposition home or self-care (01) ==
LOC: HO.HMCFM 13:29
PROVIDERS: PCP Physician Assistant; Visit Provider Physician Assistant
DX: R73.03 Prediabetes (principal); I10 Essential (primary) hypertension; J32.9 Chronic sinusitis, unspecified; B96.89 Other specified bacterial agents as the cause of diseases classified elsewhere

== ENCOUNTER → 2025-03-27 13:29 | Outpatient (BNVA) | payer MEDICARE, SELFPAY | PROVIDERS: PCP Physician Assistant; Visit Provider Physician Assistant | DX: R73.03 Prediabetes (principal); I10 Essential (primary) hypertension; J32.9 Chronic sinusitis, unspecified; B96.89 Other specified bacterial agents as the cause of diseases classified elsewhere | CPT/HCPCS: 99212 ==

== ENCOUNTER 2025-05-15 08:00 | Outpatient (REF) | payer MEDICARE, SELFPAY ==
--- OUTSIDE RECORDS SUMMARY | 2025-03-14 05:00 | XMS_ITS ---
Author Organization [facility] [place] Address [address] [facility] [place] [address] Care Team Providers Care Inventory Control Supervisor Name Role Phone Domitila Roberto Primary Care Provider Skyler Berkowitz Unavailable [phone] Lucille Vitale [phone] Encounters Encounter [facility] Date [facility] [address] 03/14/2025 Lucille Vitale Plan Of Treatment Next Appt Details Provider Name:Lucille Franco ker, 06/13/2025 09:00:00 AM, [address] [place] [address], [phone], Progress Notes * Senhal CHOWDHURYB:1955 (70 yo F)Acc No.[id number]:03/14/2025 Progress Note Patient: Christofer GRACEa Provider: Obed Vitale DPM :1955 A ge:69 Y S ex:Female Date:03/14/2025 Address:[address] [id number] Pcp:Domitila Roberto Subjective: * Chief Complaints: * * [...] 03/14/2025 Generated for Mily gerardo/Vikash/Wojciech on: 0 05/15/2025 08:02 AM EDT
--- OUTSIDE RECORDS SUMMARY | 2025-05-15 08:03 | XMS_ITS | Clinical Summary ---
Author Organization [address] [facility] Address [address] [place] [address] Phone Care Team Providers Care Game Engineer Name Role Phone Ana Olmstead MD Primary Care Provider [phone] Allergies Active Allergy Reactions Criticality Noted Date Comments Fluorescein-Proparacaine High 12/22/2005 eye problems Penicillins Rash 04/08/2021 Prednisone 02/20/2024 Other reaction(s): tachycardia Sulfa (Sulfonamide Antibiotics) High 12/22/2005 Mother was severely allergic to Sulfa, close to pregnacy with Lashell. Medications cholecalciferol (VITAMIN D-3) 50 mcg (2,000 unit) tablet Take by mouth. Ac tive fexofenadine (ENMANUEL) 180 mg tablet Take 1 tablet (180 mg total) by mouth. Active latanoprost (XALATAN) 0.005 % ophthalmic solution 1 drop. Active levalbuterol (XOPENEX HFA) 45 mcg/actuation inhaler Inhale 1-2 puffs by mouth. Active levothyroxine (SYNTHROID, LEVOTHROID) 88 mcg tablet 2 Active metoprolol succinate (Toprol XL) 25 mg 24 hr tablet Take 1 tablet (25 mg total) by mouth. Brand name only Toprol 2 Active metoprolol succinate (TOPROL-XL) 50 mg 24 hr tablet 2 Active metoprolol succinate (Toprol XL) 50 mg [...] (one) time each day. 90 each 3 4 10/05/20 25 Active omeprazole (PriLOSEC) [address] capsule Take 1 capsule (20 mg total) by mouth 2 (two) times a day. 180 each 3 4 09/05/20 25 Active Active Problems Problem Noted Date Diagnosed Date Diverticulosis of colon 04/14/2021 Overview (07/18/2024): CN 03/2021 Preglaucoma 09/09/2015 Seasonal allergies 07/19/2010 Temporomandibular joint disorders 09/08/2006 Overview (07/18/2024): IMO update Dermatophytosis of nail 09/08/2006 Essential hypertension, benign 03/30/2006 Overview (07/18/2024): WHITE COAT Other hemorrhoids 03/30/2006 Hypothyroidism 12/22/2005 Headache 12/22/2005 Other chronic sinusitis 12/22/2005 Encounters Date Type Department Care Team Description 03/11/2025 9:30 AM EDT Office Visit Gastroenterology - [place] [address] [place] [phone] Estela Rodrigues PA Irritable bowel syndrome, unspecified type (Primary Dx); Gastroesophageal reflux disease with esophagitis without hemorrhage from Last 3 Months Immunizations Name Administration [...] Date Site/Laterality Comments OTHER SURGICAL HISTORY PROCEDURE: [place] CURTG/CAUT ANAL FISSURE W/DILAT SPHNCTR SPX 1ST COLONOSCOPY 11/17/2005 PROCEDURE: HISTORICAL COLONOSCOPY; COMMENT: WNL OTHER SURGICAL HISTORY PROCEDURE: [facility] OPTX&/RDCTJ VRT FX&/DISLC PST 1 VRT SGM LM VAGINAL DELIVERY PROCEDURE: [facility] VAGINAL DELIVERY ONLY; COMMENT: x1 FOOT SURGERY PROCEDURE: VA UNLISTED PROCEDURE FOOT/TOES; COMMENT: RIGHT HALLUX RIGIDUS SECTION PROCEDURE: [facility] DELIVERY ONLY; COMMENT: x1 COLONOSCOPY 1998 PROCEDURE: HISTORICAL COLONOSCOPY; COMMENT: negative COLONOSCOPY 07/04/2011 PROCEDURE: HISTORICAL COLONOSCOPY; COMMENT: normal COLONOSCOPY 09/29/2016 PROCEDURE: HISTORICAL COLONOSCOPY; COMMENT: Normal, no polyps. COLONOSCOPY 04/08/2021 PROCEDURE: HISTORICAL COLONOSCOPY; COMMENT: Diverticulosis, no polyps. ESOPHAGOGASTRODUODENOSCOPY 09/28/2022 PROCEDURE: VA EGD TRANSORAL BIOPSY SINGLE/MULTIPLE; COMMENT: irregular Z [...] COLON CA Paternal Grandmother (Age 90) AL MILAGROIMER'S Son 1 Alive Son 2 Alive Social History Tobacco Use Types Packs/Day Years Used Date Smoking Tobacco: Former Cigarettes Q uit: 10/23/1989 Smokeless Tobacco: Never Alcohol Use Standard Drinks/Week Comments Not Currently 0.8 (1 standard drink = 0.6 oz p ure alcohol) Comments Unknown Sex and Gender Information Value Date Recorded Sex Assigned at Not on file Legal Sex Female 1:20 AM EST Gender Identity Not on file Sexual Orientation Not on file Obstetrics History Last Filed Vital Signs Vital Sign Reading Time Taken Comments Blood Pressure 132/84 03/11/2025 9:28 AM EDT Pulse 67 03/11/2025 9:28 AM EDT Temperature - - Respiratory Rate - - Oxygen Saturation 99% 03/11/2025 9:28 AM EDT Inhaled Oxygen Concentration - - Weight 74.8 kg (165 lb) 03/11/2025 9:28 AM EDT Height 168.9 cm (5' 6.5 ) 03/11/2025 9:28 AM EDT Body Mass Index 26.23 03/11/2025 9:28 AM EDT Plan of Treatment Upcoming Encounters Date Type Department Care Team (Late st Contact Info) Description 09/10/2025 9:10 AM EST Office Visit Gastroenterology - [place] [address] [facility] [address] [place] [phone] Estela Rodrigues PA [address] [place] [address] Health Maintenance Due Date Last Done Comments Zoster Vaccines (1 of 2) 2007 Falls Risk Assessment 10/01/2022 Hypertension/CHF/CAD Annual BMP Blood Test 10/01/2022 03/08/2021 Medicare Annual Wellness Visit 10/01/2022 Osteoporosis Screening (Bone Density Screening) 10/01/2022 Social Influencers of Health Screening 10/01/2022 Pneumococcal Vaccine: 50+ Years (2 of 2 - PCV) 01/13/2024 01/12/2023 Depression Screening 10/23/2024 COVID-19 Vaccine (7 - season) 2025 07/18/2024, 07/24/2023, 10/25/2022, Additional history exists Influenza Vaccine (#1) 2025 , 09/08/2023, 09/30/2022, Additional history exists Breast Cancer Screening 09/27/2025 09/27/2023 Cholesterol Screening (Lipid Panel) 03/08/2026 03/08/2021, 03/08/2021 Colorectal Cancer Screening: Colonoscopy 04/08/2026 04/08/2021 RSV Immunization Adult Patients (1 - 1-dose 75+ series) 2032 DTaP,Tdap,and Td Vaccines (4 - Td or Tdap) 01/26/2033 01/26/2023, 10/31/2012, 07/09/2002 Hepatitis C Screening Completed 01/21/2015 HIB Vaccines Aged Out No longer eligi [...] patient's age to complete this topic Meningococcal B Vaccine Aged Out No l onger eligible based on patient's age to complete [...] to Health Maintenance Results * Colonoscopy (04/08/2021) [facility]ologist [facility] Colonoscopy No interpretation , abstracted Anatomical Region Laterality Modality Other [facility] Provider HEALTH MAINTENANCE Final Result * Annual BMP Blood Test (03/08/2021) [facility]ologist [facility] Annual BMP Blood Test Abstracted [facility] Provider HEALTH MAINTENANCE Final Result * Lipid panel (03/08/2021) [facility] LDL/HDL Ratio 2 0 - 4 Triglycerides 57 0 - 150 mg/dL Cholesterol 192 0 - 200 mg/dL HDL 83 >=40 mg/dL LDL Cholesterol 98 0 - 100 mg/dL Blood Venous blood specimen / Unknown [facility] Provider LAB BLOOD ORDERABLES Dayan l Result * Hepatitis C Screening (01/21/2015) [facility] Hepatitis C Screening Abstracted [facility] Provider HEALTH MAINTENANCE Final Result from Last 3 Months or Most Recently Relevant to Health Maintenance Insurance MEDICARE [facility] Care Teams Game Engineer Relationship Specialty Start Date End Date Ana Olmstead MD [address] [place] [id number] PCP - General Endocrinology 12/02/24
--- OUTSIDE RECORDS SUMMARY | 2025-05-15 08:03 | XMS_ITS ---
Author Name [facility] [place]) Organization Unknown Care Team Organization Name Specialty Phone Email Start Date End Da te [facility] Termed, PROVIDER Primary Care 08/30/202205/23
[2025-05-15 11:16] LABS: MANUAL DIFF FLAG NO
[2025-05-15 11:32] LABS: Hematocrit 44.2 % (37.0-47.0); Hemoglobin 14.8 g/dl (12.0-16.0); Imm Gran Abs Auto 0.03 X10*3/uL (0.00-0.03); Imm Gran Pct Auto 0.5 % (0.0-0.4); Lymphocytes Absolute Auto 2.3 X10*3/uL (1.2-4.9); Mean Corpuscular HGB Conc 33.5 g/dl (31.0-35.0); Mean Corpuscular Hemoglobin 30.8 pg (27.0-33.0); Mean Corpuscular Volume 92.1 fL (80.0-98.0); NRBC Abs Auto 0.000 X10*3/uL (0.0-0.012); NRBC Pct Auto 0.0 /100WBC (0.0-0.2); Platelet Count 244 X10*3/uL (160-400); Red Blood Count 4.80 X10*6/uL (4.20-5.50); White Blood Count 5.5 X10*3/uL (4.8-10.8)
[2025-05-15 11:46] LABS: Hemoglobin A1C 145.4542 umol/L; Total Hemoglobin (HGBA1C) 3839.7784 umol/L
[2025-05-15 11:57] LABS: Alanine Aminotransferase 27 U/L (0-31); Albumin Level 4.3 g/dL (3.5-5.0); Alkaline Phosphatase 90 U/L (39-117); Anion Gap 11 (12-20); Aspartate Amino Transferase 27 U/L (5-31); Blood Urea Nitrogen 16 mg/dL (9-16); Calcium 9.1 mg/dL (8.4-10.2); Carbon Dioxide 28 mmol/L (22-29); Chloride 105 mmol/L (96-108); Cholesterol 190 mg/dL (<200); Estimated Glomerular Filt Rate > 60; HDL Cholesterol 57 mg/dL (>40); Potassium 4.3 mmol/L (3.3-5.1); Sodium 140 mmol/L (135-145); Total Protein 6.3 g/dL (6.5-8.0); Triglycerides 80 mg/dL (<150)
== END 2025-05-15 08:01 | disposition home or self-care (01) ==
LOC: HO.WFDLDS 08:00
PROVIDERS: Visit Provider Physician Assistant
DX: J30.9 Allergic rhinitis, unspecified (principal); E03.9 Hypothyroidism, unspecified; R73.03 Prediabetes; I10 Essential (primary) hypertension; K21.9 Gastro-esophageal reflux disease without esophagitis; R73.01 Impaired fasting glucose
CPT/HCPCS: 36415; 80053; 80061; 83036; 84443; 85025

== ENCOUNTER 2025-05-22 07:43 | Outpatient (AMB) | payer MEDICARE, OTHER, SELFPAY ==
--- OUTSIDE RECORDS SUMMARY | 2025-03-14 05:00 | XMS_ITS ---
Author Organization [facility] [place] Address [address] [facility] [place] [address] Care Team Providers Care Sas Etl Developer Name Role Phone Domitila Roberto Primary Care Provider Skyler Berkowitz Unavailable [phone] Lucille Vitale [phone] Encounters En[facility] [address] [facility] Lucille Vitale Plan Of Treatment Next Appt Details Provider Name:Lucille Franco ker, 06/13/2025 09:00:00 AM, [address] [place] [address], [phone], Progress Notes * Snehal CHOWDHURYB:1955 (70 yo F)Acc No.[id number]:03/14/2025 Progress Note Patient: Christofer GRACEa Provider: Obed Vitale DPM :1955 A ge:69 Y S ex:Female Date:03/14/2025 Address:[address] [id number] Pcp:Domtiila Roberto Subjective: * Chief Complaints: * * Medical History: Objective: * Vitals: Assessment: Plan: * Treatment: * Images: * The named appointment provid er may or may not be the originator of this progress note, and it is not deemed complete until electronically signed by the appointment provider. Sign off status: Pending * Provider: Obed Vitale BERNARDO Date: 0 03/14/2025 Generated for Mily gerardo/Vikash/Wojciech on: 0 05/22/2025 07:45 AM EDT
--- OUTSIDE RECORDS SUMMARY | 2025-05-22 07:45 | XMS_ITS | Clinical Summary ---
Author Organization 175 [facility] Address [address] [place] [address] Phone Care Team Providers Care Candy Spreader Helper Name Role Phone Ana Olmstead MD Primary Care Provider [phone] Allergies Active Allergy Reactions Criticality Noted Date [...] 9:30 AM EDT Office Visit Gastroenterology - [place] [address] [place] [phone] Estela Rodrigues PA Irritable bowel syndrome, unspecified [...] Date Site/Laterality Comments OTHER SURGICAL HISTORY PROCEDURE: [place] CURTG/CAUT ANAL FISSURE W/DILAT SPHNCTR SPX 1ST COLONOSCOPY 11/17/2005 PROCEDURE: HISTORICAL COLONOSCOPY; COMMENT: WNL OTHER SURGICAL HISTORY PROCEDURE: [place] OPTX&/RDCTJ VRT FX&/DISLC PST 1 VRT SGM LM VAGINAL DELIVERY PROCEDURE: [place] VAGINAL DELIVERY ONLY; COMMENT: x1 FOOT SURGERY PROCEDURE: [place] UNLISTED PROCEDURE FOOT/TOES; COMMENT: RIGHT HALLUX RIGIDUS SECTION PROCEDURE: [place] DELIVERY ONLY; COMMENT: x1 COLONOSCOPY 1998 PROCEDURE: HISTORICAL COLONOSCOPY; COMMENT: negative COLONOSCOPY 07/04/2011 PROCEDURE: HISTORICAL COLONOSCOPY; COMMENT: normal COLONOSCOPY 09/29/2016 PROCEDURE: HISTORICAL COLONOSCOPY; COMMENT: Normal, no polyps. COLONOSCOPY 04/08/2021 PROCEDURE: HISTORICAL COLONOSCOPY; COMMENT: Diverticulosis, no polyps. ESOPHAGOGASTRODUODENOSCOPY 09/28/2022 PROCEDURE: [place] EGD TRANSORAL BIOPSY SINGLE/MULTIPLE; COMMENT: irregular Z [...] 9:10 AM EST Office Visit Gastroenterology - [place] [address] [facility] [address] [place] [phone] Estela Rodrigues PA [address] [place] [address] Health Maintenance Due Date Last Done Comments [...] Health Maintenance Results * Colonoscopy (04/08/2021) Pathologist [facility] Colonoscopy No interpretation , abstracted Anatomical Region Laterality Modality Other [facility] Provider HEALTH MAINTENANCE Final Result * Annual BMP Blood Test (03/08/2021) Pathologist [facility] Annual BMP Blood Test Abstracted [facility] Provider HEALTH MAINTENANCE Final Result * Lipid panel (03/08/2021) [facility] LDL/HDL Ratio 2 0 - 4 Triglycerides 57 0 - 150 mg/dL Cholesterol 192 0 - 200 mg/dL HDL 83 >=40 mg/dL LDL Cholesterol 98 0 - 100 mg/dL Blood Venous blood specimen / Unknown [facility] Provider LAB BLOOD ORDERABLES Dayan l Result * Hepatitis C Screening (01/21/2015) [facility] Hepatitis C Screening Abstracted [facility] Provider HEALTH MAINTENANCE Final Result from Last 3 Months or Most Recently Relevant to Health Maintenance Insurance MEDICARE [facility] Care Teams Candy Spreader Helper Relationship Specialty Start Date End Date Ana Olmstead MD [address] [place] [id number] PCP - General Endocrinology 12/02/24
--- NOTE | 2025-05-22 08:04 | MHC.PC.OV ---
Vital Signs 05/22/25 08:20 Height 5 ft 6 in Weight 160 lb BMI 25.8 BP 126/84 Blood Pressure Location Lt brachial Position Sitting Respiration 12 Pulse 67 Pulse Source Pulse Oximeter Temp 98.2 F Temp Source Oral Pulse Oximetry (%) 95 Oxygen Delivery Method Room Air Intake Visit Reasons: cpe Intake Note: Physical. Coughing, sneezing, sinus issues. Sxs started Monday. dx with sinus infection. 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: No Allergies Penicillins Allergy (Unknown, Verified 05/22/25 08:06) Rash Sulfa (Sulfonamide Antibiotics) Allergy (Unknown, Verified 05/22/25 08:06) unknown nitrofurantoin (From Macrobid) Adverse Reaction (Unknown, Verified 05/22/25 08:06) cough prednisone Adverse Reaction (Verified 05/22/25 08:06) tachycardia Medication List - Last Reconciled 05/22/25 by Domitila Roberto PA-C cromolyn (Nasalcrom) 1 spray intranasal TID fexofenadine 180 mg PO DAILY hydrocortisone acetate 25 mg MN BEDTIME latanoprost 0.005% drps ophthalmic (eye) levothyroxine 88 mcg PO DAILY omeprazole 20 mg PO BID Toprol XL (metoprolol succinate) 75 mg (1.5 x 50 mg) PO DAILY 90 days NS Tobacco use date assessed: 05/22/25 Fall risk assessment: No Falls in past year Last assessed Fall Risk: 05/22/25 Dental Screening Dental Screen Date: 03/27/25 HPI cpe HPI Details Patient is a 70-year-old female with a significant past medical history of GERD, hypertension, hypothyroidism, prediabetes, vitamin-D deficiency, diverticulosis, allergic rhinitis, low serum IgA, palpitations, thyroid nodules presenting today for a physical. CV: Blood pressure today in the office is 126/84. She is currently on metoprolol 75 mg daily. She does follow with cardiology for her history of palpitations and hypertension. She had an echo April which was stable when compared to 2021 echo. Normal EF. Mild, chronic changes. HEENT: Has chronic sinusitis. A week ago started feeling sick with sinus congestion, slightly productive cough and pressure. She states that yesterday she did feel like she had a fever. She wants to see if she has anything can take just like COVID or the flu. No nausea, vomiting or diarrhea but did have some upset stomach with this when it initially started. She feels a little bit better today than she did yesterday. Endo: She is on 88 mcg of levothyroxine. Her last TSH was 1.6. She can only tolerate the [employer] brand of the levothyroxine. Had a thyroid ultrasound 05/01/23 which was WNL. No nodules. Last A1c was 5.6. She has a hx of prediabetes. No polyuria or polydipsia. Tries to be careful with her diet. Allergy: Follows with Allergy and immunology in [place]. Had PFTs which were normal this past year. She did fail a penicillin challenge. . 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 Pena as Dr. Ackerman left. 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 Mammogram: Up-to[facility]date[facility] Bone density: Up-to-date, WNL 07/09/24 Colonoscopy: due in 2025, Last done in 2020- Follows with [facility] Medical History (Updated 02/15/24 @ 09:49 by Domitila Roberto PA-C) Vitamin D deficiency Family history of colon cancer Low serum IgA for age GERD (gastroesophageal reflux disease) Diverticulosis Hemorrhoids Palpitations Thyroid nodule Seasonal allergies Allergic rhinitis Hypothyroidism (acquired) Prediabetes Hypertension Family History Mother Colon cancer Father Aneurysm, aortic Heart disease Paternal Grandfather Colon cancer Brother Depression Social History (Updated 11/20/24 @ 08:40 by Prachi Dyer CMA) Housing: House Alcohol intake: current Patient Tobacco Use Status: Former Tobacco user Years Smoked: socially, quit 1989 e-Cigarette/Vaping Use: Never Used Second Hand Smoke Exposure: No service: Yes Current occupational status: retired Cognitive needs: No Hearing needs: No Vision needs: Yes (Reading glasses ) Questionnaire Thrive Questionnaire Date Thrive assessed: 11/13/24 I am a: Patient What is your living situation today?: I have a steady place to live Within the past 12 months, did the food you bought not last and you didn't have the money to get more?: Never true Within the past 12 months, did you worry whether your food would run out before you got money to buy more?: Never true Do you have trouble paying for medicines?: No Do you have trouble getting transportation to medical appointments?: No Do you have trouble paying your heating and electricity bill?: No Do you have trouble taking care of your child, family member or friend?: No Do you have trouble with day-to-day activities such as bathing, preparing meals, shopping, managing finances, etc.?: No Are you currently unemployed and looking for a job?: No Are you interested in more education?: No Please select the resources that you would like help with: None Currently or been in a relationship where the following occur: No concerns reported THRIVE Score: 0 MALLIKA-7 AMB Questionnaire MALLIKA-7 Date MALLIKA - 7 assessed: 11/20/24 Source: Developed by Drs. Bebeto Conde, Marie Villalta, Randy Ramirez and colleagues, with an educational sneha from [employer]. Physical exam (Primary Care) Tobacco/Smoking Status: Tobacco use Status Tobacco use date assessed 05/22/25 05/22/25 08:15 Patient Tobacco Use Status Former Tobacco user 05/22/25 08:15 e-Cigarette/Vaping Use Never Used 05/22/25 08:15 Thrive Assessment: Date of Thrive Assessment Date Thrive assessed 11/13/24 05/22/25 08:10 Currently or been in a relationship where the following occur: No concerns reported Const Orientation/consciousness: patient oriented x3 HENMT Other: Nasal mucosa erythematous and edematous. No drainage noted. TMs noted to have air-fluid levels bilaterally. Posterior oropharynx noted to be slightly erythematous but no exudates. Ears: hearing grossly normal bilaterally General nose exam: No nasal polyps present Face and sinus: Yes sinuses nontender Mouth: Normal oral and palatal mucosa present Eyes Pupils: Equal, round and reactive pupils present EOM: EOMs intact bilaterally Neck Neck: Yes full ROM and Yes no lymphadenopathy Thyroid: Thyroid normal Chest Chest palpation & inspection: normal inspection of the chest Resp Auscultation: clear to auscultation bilaterally Cardio Rate: regular rate Rhythm: regular rhythm Heart sounds: S1 normal heart sound present and S2 normal heart sound present Peripheral pulses: Peripheral pulses 2+ throughout GI Other: Soft, nontender Auscultation: normal bowel sounds Rectal Exam - Female: deferred General: Yes no CVA tenderness Back/Spine/Pelvis Other: Nontender Back: no CVA tenderness Skin General skin exam: no rashes or lesions noted Neuro General: patient oriented x3, gait normal, CN's II-XI intact bilaterally and deep tendon reflexes 2+ bilaterally Cranial nerves: Yes Equal, round and reactive pupils present Motor exam (neuro): 5/5 motor strength present throughout Sensory Exam: double simultaneous stimulation for sensation normal Coordination: [id number] test normal and Romberg test negative Extrem General: Yes normal to inspection and Yes full ROM Psych Affect: normal affect Attitude: cooperative Thought process: Normal thought process present Thought content: Normal thought content present Insight: Good insight present (Psych) Judgement: Good judgement present (Psych) Results Reviewed Results Reviewed: Laboratory Tests 05/15/25 08:02 WBC 5.5 RBC 4.80 Hgb 14.8 Hct 44.2 Plt Count 244 Sodium 140 Potassium 4.3 Chloride 105 Carbon Dioxide 28 Anion Gap 11 L BUN 16 Creatinine 0.77 Estimated GFR > 60 Fasting Glucose 115 H Estimat Average Glucose 114 Hemoglobin A1c % 5.6 Calcium 9.1 Total Bilirubin 0.5 AST 27 ALT 27 Alkaline Phosphatase 90 Total Protein 6.3 L Albumin 4.3 Triglycerides 80 Cholesterol 190 LDL Cholesterol, Calc 117 H HDL Cholesterol 57 TSH 1.16 Coding Level of Care Code Est Pt Prev Care >65y(47318) Diagnoses Routine general medical examination at a health care facility Z00.00 Primary hypertension I10 Hypertension type: primary hypertension Vitamin D deficiency E55.9 Hypothyroidism (acquired) E03.9 Viral URI with cough J06.9 Assessment & Plan Assessment & Plan (1) Routine general medical examination at a health care facility: Code(s): Z00.00 - Encounter for general adult medical examination without abnormal findings Plan: Health maintenance reviewed. Labs ordered. (2) Hypertension: Code(s): I10 - Essential (primary) hypertension Category: Medical Qualifiers: Hypertension type: primary hypertension Qualified Code(s): I10 - Essential (primary) hypertension Plan: WNL. Continue current regimen. Can only tolerate the brand. (3) Vitamin D deficiency: Code(s): E55.9 - Vitamin D deficiency, unspecified Category: Medical Plan: We will monitor (4) Hypothyroidism (acquired): Code(s): E03.9 - Hypothyroidism, unspecified Category: Medical Plan: Continue current regimen (5) Viral URI with cough: Code(s): J06.9 - Acute upper respiratory infection, unspecified Plan: COVID flu testing ordered. We will follow up pending test results. Continue with supportive measures. Does report some symptom improvement over the last 24 hours. Orders: Orders Magnesium Today E55.9 - Vitamin D deficiency, unspecified, I10 - Essential (primary) hypertension, R09.89 - Other specified symptoms and signs involving the circulatory and respiratory systems SARS-CoV2/FLU/RSV Today E55.9 - Vitamin D deficiency, unspecified, I10 - Essential (primary) hypertension, R09.89 - Other specified symptoms and signs involving the circulatory and respiratory systems Vitamin B12 and Folate Today E03.9 - Hypothyroidism, unspecified, E55.9 - Vitamin D deficiency, unspecified, I10 - Essential (primary) hypertension, R00.2 - Palpitations Vitamin D 25-OH Total Today E03.9 - Hypothyroidism, unspecified, E55.9 - Vitamin D deficiency, unspecified, I10 - Essential (primary) hypertension, R00.2 - Palpitations Medications: Changed From levothyroxine 88 mcg PO DAILY 90 tabs 3RF To levothyroxine 88 mcg PO DAILY 90 tabs 3RF NS
[2025-05-22 08:20] VITALS: BP 126/84; PULSE 67; RESP 12; TEMP 36.8; O2SAT 95; BMI 25.8
== END 2025-05-22 11:07 | disposition home or self-care (01) ==
LOC: HO.HMCFM 07:44
PROVIDERS: PCP Physician Assistant; Visit Provider Physician Assistant
DX: Z00.00 Encounter for general adult medical examination without abnormal findings (principal); I10 Essential (primary) hypertension; E55.9 Vitamin D deficiency, unspecified; E03.9 Hypothyroidism, unspecified; J06.9 Acute upper respiratory infection, unspecified

== ENCOUNTER 2025-05-22 11:02 | Outpatient (REF) | payer MEDICARE, OTHER, SELFPAY ==
[2025-05-22 11:51] LABS: Resp Syncy Virus RNA Qual PCR NEGATIVE (Negative); SARS COV2 PCR INHOUSE POSITIVE (Negative)
== END 2025-05-22 11:03 | disposition home or self-care (01) ==
LOC: HO.LNP 11:02
PROVIDERS: Visit Provider Physician Assistant
DX: Z00.01 Encounter for general adult medical examination with abnormal findings (principal); U07.1 COVID-19; I10 Essential (primary) hypertension; E55.9 Vitamin D deficiency, unspecified; E03.9 Hypothyroidism, unspecified
CPT/HCPCS: 87637; 99397